=== PATIENT | female | born 1985 | race Caucasian/White ===

== ENCOUNTER 2017-09-11 09:02 | Day surgery (SDC) | payer BC ==
[2017-09-07 14:51] LABS: Absolute Monocytes 0.3 K/uL (0.1-1.3); Absolute Neutrophil 3.1 K/uL (1.8-8.0); Basophils % 0.9 % (0-1.3); Eosinophils % 2.2 % (0-4.4); Hematocrit 38.8 % (36.0-45.0); Lymphocytes % 35.6 % (15.3-44.8); MCH 29.8 pg (27.0-35.0); MPV 11.3 fL (7.6-11.3); Monocytes % 5.4 % (3.3-12.3); RBC Red Blood Cell Count 4.17 M/uL (3.86-4.86)
[2017-09-11] MEDS ORDERED: Ringers Lactate 1,000 ML IV ONE (09:45)
[2017-09-11] MEDS ORDERED: PROPOFOL 200 MG/20 ML VIAL IV ONE (09:47)
[2017-09-11] MEDS ORDERED: MIDAZOLAM HCL 2 MG/2 ML INJ ONE (09:47)
[2017-09-11] MEDS ORDERED: FENTANYL CITR 100 MCG/2 ML ONE (09:48)
--- NOTE | 2017-09-11 10:13 | P.OP ---
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 After bimanual examination, the cervix was exposed with bivalve vaginal speculum and the anterior lip of the cervix grasped with long Allis clamp. The uterus was sounded to a depth of 8 cm. The hysteroscope was then introduced into the uterine cavity using sterile saline solution as a distending media and with attached video camera. The endocervical canal was visualized and the IUD was seen in the internal os with the strings coiled within. The IUD was grasped with a hysteroscopic grasper and removed without difficulty. IUD was examined and noted to be intact. The hysteroscope was reinserted and the endometrial cavity was inspected and both ostia visualized. No issues noted. The patient tolerated the procedure well. Several pictures were taken of the endometrial cavity and the hysteroscope removed from the cavity. The instruments were removed from the vaginal vault. No bleeding noted from the cervix. The patient was sent to recovery area in good postoperative condition. Complications: None Transferred to: Recovery Room Condition: Good
[2017-09-11] MEDS ORDERED: KETOROLAC 30 MG/ML INJ IV PRN (10:43)
[2017-09-11] MEDS ORDERED: IBUPROFEN 400 MG TAB PO PRN (10:43)
[2017-09-11] MEDS ORDERED: ONDANSETRON 4 MG (ODT) TAB PO PRN (10:43)
[2017-09-11] MEDS ORDERED: KETOROLAC 30 MG/ML INJ ONE (11:29)
[2017-09-11] MEDS ORDERED: NA CHLORIDE 0.9% 1,000 ML ONE (12:21)
== END 2017-09-11 11:38 | disposition home or self-care (01) ==
LOC: OR 09:02
PROVIDERS: ATTEND Student in an Organized Health Care Education/Training Program
PROC: 0UPD8HZ Removal of Contraceptive Device from Uterus and Cervix, Via Natural or Artificial Opening Endoscopic (ICD-10-PCS; principal; 2017-09-11 10:00)
DX: Z30.432 Encounter for removal of intrauterine contraceptive device (principal); K50.90 Crohn's disease, unspecified, without complications; K58.9 Irritable bowel syndrome, unspecified; F41.8 Other specified anxiety disorders; F17.290 Nicotine dependence, other tobacco product, uncomplicated; Z88.3 Allergy status to other anti-infective agents; Z82.49 Family history of ischemic heart disease and other diseases of the circulatory system; Z83.3 Family history of diabetes mellitus; Z82.61 Family history of arthritis; Z82.3 Family history of stroke
CPT/HCPCS: 36415; 81025; 85025; 86850; 86900; 86901; 88300; J2250; J3010; J7030

== ENCOUNTER 2024-07-16 19:40 | Emergency (ER) | payer BC, SELFPAY ==
--- OUTSIDE RECORDS SUMMARY | 2024-07-16 19:45 | XMS REPORT | Continuity of Care Document ---
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 [facility] blood pressure systolic 2022-10-04 14:00:00 109 mm[Hg] [facility] blood pressure diastolic 2022-10-04 14:00:00 70 mm[Hg] Common [facility] height 2022-06-23 11:20:00 64 [in_i] Commo n [facility] weight 2022-06-23 11:20:00 144 [lb_av] Comm on [facility] bmi 2022-06-23 11:20:00 24.71 kg/m2 Comm on [facility] height 2022-05-26 16:10:00 64 [in_i] Commo n [facility] weight 2022-05-26 16:10:00 144.8 [lb_av] Co mmon [facility] temperature 2022-05-26 16:10:00 97.3 [degF] Com mon [facility] bmi 2022-05-26 16:10:00 24.85 kg/m2 Comm on [facility] oximetry 2022-05-26 16:10:00 98 % Commo n [facility] respiratory rate 2022-05-26 16:10:00 17 /min [facility] blood pressure systolic 2022-05-26 16:10:00 117 mm[Hg] [facility] blood pressure diastolic 2022-05-26 16:10:00 72 mm[Hg] [facility] Systolic blood pressure 2022-02-16 18:06:00 108 mm[Hg] Batool Murdock ld - External Diastolic blood pressure 2022-02-16 18:06:00 64 mm[Hg] Batool Murdock ld - External Heart rate 2022-02-16 18:06:00 61 /min Nick Burns - External Respiratory rate 2022-02-16 18:06:00 17 /min Batool Burns - External Body height 2022-02-16 18:06:00 162.6 cm Grace Burns - External Body weight 2022-02-16 18:06:00 66.225 kg Grace ey Seybold - External BMI 2022-02-16 18:06:00 25.06 kg/m2 Grace ey Seybold - External Systolic blood pressure 2022-01-13 14:27:00 113 mm[Hg] Batool Seybo ld - External Diastolic blood pressure 2022-01-13 14:27:00 69 mm[Hg] Batool Seybo ld - External Heart rate 2022-01-13 14:27:00 71 /min Kelse y Seybold - External Body temperature 2022-01-13 14:27:00 37.11 Silva Batool Seybold - External Respiratory rate 2022-01-13 14:27:00 16 /min Batool Seybold - External Body height 2022-01-13 14:27:00 162.6 cm Grace ey Seybold - External Body weight 2022-01-13 14:27:00 67.405 kg Grace ey Seybold - External BMI 2022-01-13 14:27:00 25.51 kg/m2 Grace ey Seybold - External Systolic blood pressure 2021-08-25 21:25:00 113 mm[Hg] Batool Seybo ld Diastolic blood pressure 2021-08-25 21:25:00 71 mm[Hg] [facility] Seybo ld Heart rate 2021-08-25 21:25:00 64 /min Kelse y Seybold Body weight 2021-08-25 21:25:00 65.772 kg Grace ey Seybold BMI 2021-08-25 21:25:00 24.89 kg/m2 Grace ey Seybold Systolic blood pressure 2021-07-29 16:46:00 108 mm[Hg] Batool Seybo ld Diastolic blood pressure 2021-07-29 16:46:00 68 mm[Hg] Batool Seybo ld Heart rate 2021-07-29 16:46:00 80 /min Kelse y Seybold Body weight 2021-07-29 16:46:00 63.322 kg Grace ey Seybold BMI 2021-07-29 16:46:00 23.96 kg/m2 Grace ey Seybold Systolic blood pressure 2021-07-09 14:56:00 126 mm[Hg] [facility] Diastolic blood pressure 2021-07-09 14:56:00 77 mm[Hg] [facility] Heart rate 2021-07-09 14:56:00 90 /min [facility] Body temperature 2021-07-09 14:56:00 36.83 Silva [facility] Respiratory rate 2021-07-09 14:56:00 18 /min [facility] Body height 2021-07-09 14:56:00 162.6 cm [facility] Body weight 2021-07-09 14:56:00 61.803 kg [facility] BMI 2021-07-09 14:56:00 23.39 kg/m2 [facility] Oxygen saturation in Arterial blood by Pulse oximetry 2021-07-09 14:56:00 99 /min [facility] Systolic blood pressure 2021-07-02 16:32:00 104 mm[Hg] Batool Seybo ld Diastolic blood pressure 2021-07-02 16:32:00 66 mm[Hg] Batool Seybo ld Heart rate 2021-07-02 16:32:00 67 /min Kelse y Grant Body weight 2021-07-02 16:32:00 60.328 kg Grace ey ybold BMI 2021-07-02 16:32:00 22.83 kg/m2 Grace ey Seybold Systolic blood pressure 2021-06-17 22:49:00 116 mm[Hg] Batool Seybo ld Diastolic blood pressure 2021-06-17 22:49:00 78 mm[Hg] Batool Seybo ld Heart rate 2021-06-17 22:49:00 79 /min Kelse y ybold Body weight 2021-06-17 22:49:00 59.421 kg Grace ey Seybold BMI 2021-06-17 22:49:00 22.49 kg/m2 Grace ey Seybold Systolic blood pressure 2021-05-28 16:45:00 116 mm[Hg] Batool Seybo ld Diastolic blood pressure 2021-05-28 16:45:00 74 mm[Hg] Batool Seybo ld Heart rate 2021-05-28 16:45:00 68 /min Kel y Grant Body weight 2021-05-28 16:45:00 58.786 kg Grace Burns BMI 2021-05-28 16:45:00 22.25 kg/m2 Grace Burns height 2021-04-14 14:20:00 64 [in_i] Commo n [facility] weight 2021-04-14 14:20:00 130 [lb_av] Comm on [facility] temperature 2021-04-14 14:20:00 98 [degF] Comm on [facility] bmi 2021-04-14 14:20:00 22.31 kg/m2 Comm on [facility] height 2021-04-05 11:40:00 64 [in_i] Commo n [facility] weight 2021-04-05 11:40:00 130 [lb_av] Comm on [facility] bmi 2021-04-05 11:40:00 22.31 kg/m2 Comm on [facility] height 2021-03-15 16:20:00 64 [in_i] Commo n [facility] weight 2021-03-15 16:20:00 133.8 [lb_av] Co mmon [facility] temperature 2021-03-15 16:20:00 98.3 [degF] Com mon [facility] bmi 2021-03-15 16:20:00 22.96 kg/m2 Comm on [facility] oximetry 2021-03-15 16:20:00 100 % Commo n [facility] respiratory rate 2021-03-15 16:20:00 17 /min Common [facility] blood pressure systolic 2021-03-15 16:20:00 134 mm[Hg] Common [facility] blood pressure diastolic 2021-03-15 16:20:00 86 mm[Hg] Common [facility] height 2020-11-16 16:20:00 64 [in_i] Commo n [facility] weight 2020-11-16 16:20:00 132.7 [lb_av] Co mmon [facility] temperature 2020-11-16 16:20:00 98.2 [degF] Com mon [facility] bmi 2020-11-16 16:20:00 22.78 kg/m2 Comm on [facility] oximetry 2020-11-16 16:20:00 99 % Commo n [facility] respiratory rate 2020-11-16 16:20:00 16 /min Common [facility] blood pressure systolic 2020-11-16 16:20:00 134 mm[Hg] [facility] blood pressure diastolic 2020-11-16 16:20:00 70 mm[Hg] [facility] height 2020-07-10 10:50:00 64 [in_i] Commo n [facility] weight 2020-07-10 10:50:00 132 [lb_av] Comm on [facility] temperature 2020-07-10 10:50:00 98.5 [degF] Com mon [facility] bmi 2020-07-10 10:50:00 22.66 kg/m2 Comm on [facility] Procedures Procedure Date / Time Performed Performing Clinicia n Source URINE TEST-BACK OFFICE TEST 2024-06-06 15:00:00 John Peres - External URINE TEST-BACK OFFICE TEST 2024-04-05 15:31:00 John Munoz - External [id number] 2021-12-29 00:00:00 BRADY [facility] [id number] 2021-12-29 00:00:00 BRADY [facility] POCT URINALYSIS 2021-07-09 14:56:00 Patty Sam [facility] US PREG LIMITED - IN OFFICE 2021-05-28 17:38:47 John Munoz [facility] Encounters Start Date/Time End Date/Time Encounter Type Admission Type Attending [facility] Care Facility Care Department Encounter ID Source 2024-05-30 11:31:00 Outpatient Steele, Daniel STLC STLMLC [id number] [facility] 2024-05-28 11:16:00 Outpatient Steele, Daniel STLMLC STLMLC [id number] [facility] 2024-01-19 08:29:00 Outpatient Steele, Daniel STLC STLMLC [id number] [facility] 2023-06-19 16:11:00 Outpatient Steele, Daniel STLC STLMLC [id number] [facility] 2023-05-29 09:29:00 Outpatient Steele, Daniel STLC STLMLC [id number] [facility] 2023-05-25 10:21:00 Outpatient Steele, Daniel STLC STLC [id number] [facility] 2022-06-21 09:32:00 Outpatient Steele, Daniel STLC STLC [id number] [facility] 2022-01-11 00:00:00 Inpatient PHYLLIS Gris Marquezcia [facility] [id number] 44 [facility] 2021-05-05 14:20:39 Outpatient Steele, Daniel STLMLC STLMLC [id number] [facility] 2021-05-05 11:30:32 Outpatient Steele, Daniel STLC STLMLC [id number] [facility] 2021-05-05 11:19:18 Outpatient Steele, Daniel STLC STLMLC [id number] [facility] 2021-05-05 11:03:17 Outpatient Steele, Daniel STLMLC STLMLC [id number] [facility] 2024-11-11 10:00:00 2024-11-11 10:00:00 Outpatient SHOSHANA JONES BATO[facility] RUTHERFORD [id number] [facility] 2024-07-12 10:00:00 2024-07-12 10:00:00 Outpatient SHOSHANA JONES [facility] [id number] [facility] 2024-07-12 00:00:00 2024-07-12 00:00:00 Outpatient KELLY STEELE [facility] R[place] [id number] [facility] 2024-07-10 10:20:00 2024-07-10 10:20:00 Outpatient LABTish BATOOL RUTHERF[facility] [id number] [facility] 2024-06-18 13:45:00 2024-06-18 13:45:00 Outpatient ANTONIETTA RS, JOHN RUTHERFORD [id number] [facility] 2024-06-18 00:00:00 2024-06-18 00:00:00 Outpatient ALIX-ARPAN RS, JOHN RUTHERFORD [id number] [facility] 2024-06-07 00:00:00 2024-06-07 00:00:00 Outpatient ALIX-ARPAN RS, JOHN RUTHERFORD [id number] [facility] 2024-06-07 00:00:00 2024-06-07 00:00:00 Outpatient ALIX-ARPAN RS, JOHN RUTHERFORD [id number] [facility] 2024-06-06 08:45:00 2024-06-06 08:45:00 Outpatient ALIX-KERRYE RS, [facility]HERF[facility] [id number] [facility] 2024-05-30 00:00:00 2024-05-30 00:00:00 (TEL[facility] [id number] [facility] 2024-05-28 14:40:00 2024-05-28 14:40:00 Outpatient BATOOL RUTHERFORD [id number] [facility] Seybkeyonna 2024-05-28 14:30:00 2024-05-28 14:30:00 Outpatient BATOOL RUTHERFORD [id number] [facility] Burns 2024-05-28 11:30:00 2024-05-28 11:30:00 Outpatient BHAGAT, KAREY RUTHERFORD [id number] [facility] 2024-05-27 11:50:00 2024-05-27 11:50:00 Outpatient CONFERENCE, [facility] BATOOL RUTHER[facility] [id number] [facility] Burns 2024-05-27 00:00:00 2024-05-27 00:00:00 Outpatient CONFERENCE, [facility] BATOOL RUTHERFORD [id number] [facility] Guadalupekeyonna 2024-05-24 08:55:00 2024-05-24 08:55:00 Outpatient CONFERENCE, [facility] R[facility]HER[facility] [id number] [facility] 2024-05-21 14:20:00 2024-05-21 14:20:00 Outpatient BATOOL RUTHERFORD [id number] [facility] 2024-05-21 11:00:00 2024-05-21 11:00:00 Outpatient BATOOL RUTHERFORD [id number] [facility] 2024-05-21 10:30:00 2024-05-21 10:30:00 Outpatient BATOOL RUTHERFORD [id number] [facility] 2024-05-17 00:00:00 2024-05-17 00:00:00 Outpatient BHAGAT, KAREY RUTHERFORD [id number] [facility] 2024-05-16 10:30:00 2024-05-16 10:30:00 Outpatient BHAGAT, KAREY RUTHERFORD [id number] [facility] 2024-05-16 09:00:00 2024-05-16 09:00:00 Outpatient BHAGAT, KAREY RUTHERFORD [id number] [facility] 2024-05-14 13:15:00 2024-05-14 13:15:00 Outpatient BATOOL RUTHERFORD [id number] [facility] 2024-05-13 00:00:00 2024-05-13 00:00:00 Outpatient CONFERENCE, [facility] BATOOL RUTHERFORD [id number] [facility] 2024-05-10 11:10:00 2024-05-10 11:10:00 Outpatient CONFERENCE, [facility] BATOOL RUTHERFORD [id number] [facility] Burns 2024-05-10 00:00:00 2024-05-10 00:00:00 Outpatient CONFERENCE, [facility] BATOOL RUTHERFORD [id number] [facility] Burns 2024-05-09 14:00:00 2024-05-09 14:00:00 Outpatient BATOOL BATOOL [id number] [facility] 2024-05-09 10:15:00 2024-05-09 10:15:00 Outpatient [id number] BATO[facility] RUTHERFORD [id number] [facility] 2024-05-09 09:20:00 2024-05-09 09:20:00 Outpatient BATOOL BATOOL [id number] [facility] 2024-05-03 00:00:00 2024-05-03 00:00:00 (TEL) STLMLC STLMLC [id number] [facility] 2024-05-03 00:00:00 2024-05-03 00:00:00 OFFICE VISIT ESTAB PT LEVEL 4 STLMLC STLMLC [id number] [facility] 2024-04-11 09:00:00 2024-04-11 09:00:00 Outpatient SHOSHANA JONES [id number] [facility] 2024-04-05 09:15:00 2024-04-05 09:15:00 Outpatient JOHN DARDEN [id number] [facility] 2024-03-19 00:00:00 2024-03-19 00:00:00 (TEL) STLMLC STLMLC [id number] [facility] 2024-03-19 00:00:00 2024-03-19 00:00:00 OFFICE VISIT ESTAB PT LEVEL 3 STLMLC STLMLC [id number] [facility] 2024-03-01 09:00:00 2024-03-01 09:00:00 Outpatient JOHN DARDEN [id number] [facility] 2024-02-29 14:30:00 2024-02-29 14:30:00 Outpatient SHOSHANA JONES BATOOL [id number] [facility] raheel 2024-02-02 00:00:00 2024-02-02 00:00:00 Outpatient MD BATOOL FERNANDES [id number] [facility] raheel 2024-01-29 00:00:00 2024-01-29 00:00:00 Outpatient RATNA, JJ RUTHERFORD [id number] [facility] raheel 2024-01-29 00:00:00 2024-01-29 00:00:00 Outpatient MD BATOOL FERNANDES [id number] [facility] raheel 2024-01-29 00:00:00 2024-01-29 00:00:00 Outpatient JOHN DARDEN [id number] [facility] 2024-01-29 00:00:00 2024-01-29 00:00:00 (TEL) STLMLC STLMLC [id number] [facility] 2024-01-23 00:00:00 2024-01-23 00:00:00 (TEL) STLMLC STLMLC [id number] [facility] 2024-01-22 00:00:00 2024-01-22 00:00:00 OFFICE VISIT ESTAB PT LEVEL [id number] [facility] 2024-01-19 00:00:00 2024-01-19 00:00:00 (TEL) STLMLC STLMLC [id number] [facility] 2023-06-21 00:00:00 2023-06-21 00:00:00 OFFICE VISIT ESTAB PT LEVEL [id number] [facility] 2023-05-29 00:00:00 2023-05-29 00:00:00 PREV VISIT EST AGE 18-[id number] [facility] 2023-02-15 00:00:00 2023-02-15 00:00:00 (TEL) STLMLC STLMLC [id number] [facility] 2023-01-03 00:00:00 2023-01-03 00:00:00 (TEL) STLMLC STLMLC [id number] [facility] 2023-01-03 00:00:00 2023-01-03 00:00:00 OFFICE VISIT ESTAB PT LEVEL [id number] [facility] 2022-10-05 00:00:00 2022-10-05 00:00:00 (TEL) STLMLC STLMLC [id number] [facility] 2022-10-04 00:00:00 2022-10-04 00:00:00 (TEL) STLMLC STLMLC [id number] [facility] 2022-10-04 00:00:00 2022-10-04 00:00:00 OFFICE VISIT ESTAB PT LEVEL [id number] [facility] 2022-06-23 00:00:00 2022-06-23 00:00:00 OFFICE VISIT ESTAB PT LEVEL [id number] [facility] 2022-05-26 00:00:00 2022-05-26 00:00:00 PREV VISIT EST AGE 18-[id number] [facility] 2022-03-22 00:00:00 2022-03-22 00:00:00 (TEL) STLMLC STLMLC [id number] [facility] 2022-02-16 11:30:00 2022-02-16 11:30:00 Outpatient ALIXJOHN URIOSTEGUI [id number] [facility] 2022-02-10 09:15:00 2022-02-10 09:15:00 Outpatient ALIXJOHN URIOSTEGUI [id number] [facility] 2022-01-24 00:00:00 2022-01-24 00:00:00 Outpatient ALIXJOHN URIOSTEGUI [id number] [facility] 2022-01-20 09:15:00 2022-01-20 09:15:00 Outpatient ALIX-TOWNS END, JOHN BATOOL RUTHERF[facility] [id number] [facility] ybkeyonna 2022-01-13 09:15:00 2022-01-13 09:15:00 Outpatient ALIX-TOWNS END, JOHN BATOOL RUTHERFORD [id number] [facility] 2022-01-11 08:00:00 2022-01-11 08:00:00 Outpatient ALIX-T[place] END, JOHN BATOOL RUTHERFORD [id number] [facility] 2022-01-06 09:15:00 2022-01-06 09:15:00 Outpatient [facility]IX[facility], JOHN RUTHERFORD [id number] [facility] 2021-12-29 15:57:00 2021-12-31 12:41:00 Inpatient Gris [facility] OBPP [id number] 43 [facility] 2021-12-30 09:15:00 2021-12-30 09:15:00 Outpatient ALIX-TOWNS END, JOHN RUTHERFORD [id number] [facility] 2021-12-30 00:00:00 2021-12-30 00:00:00 Outpatient ALIX[place], JOHN RUTHERFORD [id number] [facility] 2021-12-29 00:00:00 2021-12-29 00:00:00 Outpatient ALIX-T[place] END, JOHN RUTHERFORD [id number] [facility] 2021-12-27 00:00:00 2021-12-27 00:00:00 Outpatient ALIX-T[place] END, JOHN RUTHERFORD [id number] [facility] 2021-12-23 11:00:00 2021-12-23 11:00:00 Outpatient [id number] BATOOL RUTHERFORD [id number] [facility] Seybold 2021-12-23 09:15:00 2021-12-23 09:15:00 Outpatient ALIX-TOW[place] END, JOHN RUTHERFORD [id number] [facility] 2021-12-22 00:00:00 2021-12-22 00:00:00 Outpatient ALIX-TOW[place] END, JOHN TINOCOSEY [id number] [facility] Burns 2021-12-22 00:00:00 2021-12-22 00:00:00 Outpatient MD BATOOL FERNANDES [id number] [facility] Burns 2021-12-09 09:30:00 2021-12-09 09:45:00 [facility] 1.2.840.114 [id number] [facility] Bunrs 2021-11-24 10:30:00 2021-11-24 10:30:00 [facility] 1.2.840.114 [id number] [facility] Burns 2021-11-11 11:00:00 2021-11-11 11:00:00 [facility] 1.2.840.114 [id number] [facility] Burns 2021-11-04 10:20:00 2021-11-04 10:20:00 Outpatient LAB53 BATOOL RUTHERFORD [id number] [facility] Burns 2021-11-04 09:15:00 2021-11-04 09:15:00 [facility]ILAN 1.2.840.114 [id number] [facility] Burns 2021-11-03 11:00:00 2021-11-03 11:00:00 [facility] [id number] [facility] Gu[facility]upe[facility] 2021-10-28 11:00:00 2021-10-28 11:00:00 Telemedici Sukumar Bartlett CLEAR CORONADO 1.2.840.114 [id number] [facility] 2021-10-28 09:30:00 2021-10-28 09:30:00 Telemedici ne [facility] 1.2.840.114 [id number] [facility] 2021-10-26 10:30:00 2021-10-26 10:30:00 Outpatient NOB08, NOB08 BATOOL RUTHERFORD [id number] [facility] 2021-10-25 00:00:00 2021-10-25 00:00:00 [facility] [id number] [facility] 2021-10-08 00:00:00 2021-10-08 00:00:00 Outpatient MD BATOOL FERNANDES [id number] [facility] 2021-09-22 10:45:00 2021-09-22 10:45:00 [facility] 1.2.840.114 [id number] [id number] [facility] 2021-09-21 00:00:00 2021-09-21 00:00:00 Outpatient MD BATOOL FERNANDES [id number] [facility] 2021-09-01 00:00:00 2021-09-01 00:00:00 Outpatient [facility]NDES [id number] [facility] 2021-08-26 11:15:00 2021-08-26 11:15:00 [facility] [id number] [facility] 2021-08-25 16:30:00 2021-08-25 16:30:00 [facility] 1.2.840.114 350.1.13.13 [id number] [facility] 2021-08-25 15:00:00 2021-08-25 15:00:00 Outpatient BATOOL BATOOL [id number] [facility] 2021-08-25 10:30:00 2021-08-25 10:30:00 Outpatient [facility] ANNETTA, JOHN RUTHERFORD BATOOL [id number] [facility] Burns 2021-08-13 00:00:00 2021-08-13 00:00:00 Outpatient [facility], JOHN BATOOL BATOOL [id number] [facility] 2021-08-02 00:00:00 2021-08-02 00:00:00 Outpatient [facility], JOHN BATOOL RUTHERFORD [id number] [facility] 2021-07-29 13:05:00 2021-07-29 13:05:00 Outpatient LAB53 BATOOL BATOOL [id number] [facility] 2021-07-29 11:30:00 2021-07-29 11:45:00 Routine OB [facility] annetta John CORONADO 1.2.840.114 350.1.13.13 [id number] [id number] [facility] 2021-07-28 11:30:00 2021-07-28 11:30:00 Outpatient [facility] ANNETTA, JOHN TINOCOMARY RUTHERFORD [id number] [facility] 2021-07-14 11:30:00 2021-07-14 11:30:00 Outpatient [facility], JOHN BATOOL RUTHERFORD [id number] [facility] 2021-07-13 14:22:00 2021-07-13 18:18:00 Emergency EM Darvin Del Castillo [facility] TU [id number] [facility] 2021-07-13 00:00:00 2021-07-13 00:00:00 Outpatient [facility] JOHN LITTLEJOHN BATOOL RUTHERFORD [id number] [facility] 2021-07-12 00:00:00 2021-07-12 00:00:00 Patient Secure Msg Doctor Unassigned, [place] [facility] 1..840.114 350.1.13.10 4.2.7.2.686 [id number] [facility] 2021-07-11 00:00:00 2021-07-11 00:00:00 Outpatient ALIXJOHN URIOSTEGUI BATOOL [id number] [facility] Burns 2021-07-10 00:00:00 2021-07-10 00:00:00 Patient Secure Msg Doctor Unassigned, [place] [facility] 1..840.114 350.1.13.10 4.2.7.2.686 [id number] [facility] 2021-07-09 10:00:00 2021-07-09 10:40:26 Outpatient AUDREY YOUNGER [facility] [id number] [facility] 2021-07-09 10:00:00 2021-07-09 10:20:00 Urgent Care Audrey Montoya, Attending [facility] 1..840.114 350.1.13.10 4.2.7.2.686 [id number] [facility] 2021-07-09 10:00:00 2021-07-09 10:00:00 Outpatient R UNKNOWN, ATTENDING [facility] [id number] [facility] 2021-07-09 00:00:00 2021-07-09 00:00:00 [facility] [facility], JOHN BATOOL BATOOL [id number] [facility] 2021-07-09 00:00:00 2021-07-09 00:00:00 Telephone Audrey Montoya [facility] 1..840.114 350.1.13.10 4.2.7.2.686 [id number] [facility] 2021-07-08 14:05:00 2021-07-08 14:05:00 Outpatient LAB90 BATOOL RUTHERFORD [id number] [facility] keyonna 2021-07-08 00:00:00 2021-07-08 00:00:00 Outpatient [facility], JOHN BATOOL RUTHERFORD [id number] [facility] 2021-07-02 11:15:00 2021-07-02 11:30:00 Routine OB [facility], John CORONADO 1.2.840.114 350.1.13.13 1.2.7.2.686 [id number] [facility] 2021-06-25 09:25:00 2021-06-25 09:25:00 Outpatient LAB90 BATOOL RUTHERFORD [id number] [facility] 2021-06-25 09:00:00 2021-06-25 09:00:00 Outpatient [facility], JOHN BATOOL RUTHERFORD [id number] [facility] 2021-06-17 16:55:00 2021-06-17 16:55:00 Outpatient BATOOL RUTHERFORD [id number] [facility] 2021-06-17 16:30:00 2021-06-17 16:45:00 Routine OB [facility], John CORONADO 1.2.840.114 350.1.13.13 1.2.7.2.686 [id number] [facility] 2021-06-16 00:00:00 2021-06-16 00:00:00 Outpatient [facility], JOHN BATOOL RUTHERFORD [id number] [facility] 2021-06-15 00:00:00 2021-06-15 00:00:00 Outpatient [facility], JOHNAKI RUTHERFORD [id number] [facility] 2021-06-15 00:00:00 2021-06-15 00:00:00 Outpatient MALINDA PAEZ [id number] [facility] 2021-06-09 15:00:00 2021-06-09 15:00:00 Outpatient [facility], JOHN BATOOL RUTHERFORD [id number] [facility] 2021-06-09 15:00:00 2021-06-09 15:00:00 Outpatient BATOOL BATOOL [id number] [facility] Burns 2021-06-07 09:30:00 2021-06-07 09:30:00 Outpatient NOB53 BATOOL BATOOL [id number] [facility] Burns 2021-05-28 12:00:00 2021-05-28 12:00:00 Outpatient PTM71-BKH BATOOL BATOOL [id number] [facility] Burns 2021-05-28 11:55:00 2021-05-28 11:55:00 Outpatient LAB53 BATOOL BATOOL [id number] [facility] Burns 2021-05-28 10:30:00 2021-05-28 11:00:00 [facility] John Darden 1.2.840.114 350.1.13.13 1.2.7.2.686 [id number] [facility] Burns 2021-05-28 10:45:00 2021-05-28 10:45:00 Outpatient BATOOL RUTHERFORD [id number] [facility] Burns 2021-05-28 10:30:00 2021-05-28 10:30:00 Outpatient BATOOL RUTHERFORD [id number] [facility] Grant 2021-05-28 09:30:00 2021-05-28 09:30:00 Outpatient NOB08, NOB08 BATOOL RUTHERFORD [id number] [facility] Burns 2021-05-28 00:00:00 2021-05-28 00:00:00 Outpatient MD BATOOL FERNANDES [id number] [facility] keyonna 2021-05-27 00:00:00 2021-05-27 00:00:00 Outpatient MD BATOOL FERNANDES [id number] [facility] raheel 2021-05-24 11:00:00 2021-05-24 11:00:00 Outpatient LAB90 BATOOL RUTHERFORD [id number] [facility] Seybkeyonna 2021-05-24 00:00:00 2021-05-24 00:00:00 Outpatient JOHN DARDEN [id number] [facility] 2021-05-06 00:00:00 2021-05-06 00:00:00 (TEL) STLMLC STLMLC [id number] [facility] 2021-04-14 00:00:00 2021-04-14 00:00:00 OFFICE VISIT ESTAB PT LEVEL [id number] [facility] 2021-04-06 00:00:00 2021-04-06 00:00:00 (TEL) STLMLC STLMLC [id number] [facility] 2021-04-05 00:00:00 2021-04-05 00:00:00 (TEL) STLMLC STLMLC [id number] [facility] 2021-04-05 00:00:00 2021-04-05 00:00:00 OFFICE VISIT EST PT LEVEL [id number] [facility] 2021-03-25 00:00:00 2021-03-25 00:00:00 (TEL) STLMLC STLMLC [id number] [facility] 2021-03-16 00:00:00 2021-03-16 00:00:00 (WEB) STLMLC STLMLC [id number] [facility] 2021-03-15 00:00:00 2021-03-15 00:00:00 PREV VISIT EST AGE 18-39 [id number] [facility] 2020-11-18 00:00:00 2020-11-18 00:00:00 (TEL) STLMLC STLMLC [id number] [facility] 2020-11-16 00:00:00 2020-11-16 00:00:00 (TEL) STLMLC STLMLC [id number] [facility] 2020-11-16 00:00:00 2020-11-16 00:00:00 OFFICE VISIT EST PT LEVEL [id number] [facility] 2020-07-10 00:00:00 2020-07-10 00:00:00 (TEL) STLMLC STLMLC [id number] [facility] 2020-07-10 00:00:00 2020-07-10 00:00:00 OFFICE VISIT EST PT LEVEL [id number] [facility] 2020-03-11 00:00:00 2020-03-11 00:00:00 Outpatient STLMLC STLMLC [id number] [facility] 2020-02-14 00:00:00 2020-02-14 00:00:00 Outpatient STLMLC STLMLC [id number] [facility] 2020-02-14 00:00:00 2020-02-14 00:00:00 Outpatient STLMLC STLMLC [id number] [facility] 2019-12-31 13:00:00 2019-12-31 13:00:00 Outpatient ADIA JOE [facility] [id number] [facility] 2019-10-17 13:30:00 2019-10-17 13:30:00 [facility] [id number] [facility] 2019-10-14 00:00:00 2019-10-14 00:00:00 Orders Only Doctor Unassigned, [place] [facility] 1.2.840.114 350.1.13.10 4.2.7.2.686 [id number] 2019-10-03 14:30:00 2019-10-03 14:30:00 Outpatient MARCI SMITH [facility] [id number] [facility] 2019-10-01 00:00:00 2019-10-01 00:00:00 Case Management Adia De La Rosa [facility] [place] [facility]840.114 350.1.13.10 4.2.7.2.686 [id number] 2019-09-27 11:00:00 2019-09-27 11:00:00 Outpatient ADIA JOE [facility] [id number] [facility] 2019-09-27 00:00:00 2019-09-27 00:00:00 Orders Only Doctor Unassigned, [place] [facility] 1.2.840.114 350.1.13.10 4.2.7.2.686 [id number] 2019-09-24 10:45:00 2019-09-24 10:45:00 [facility] [id number] [facility] 2019-08-29 13:00:00 2019-08-29 13:00:00 [facility] [id number] [facility] 2019-05-30 14:15:00 2019-05-30 14:15:00 [facility] [id number] [facility] 2019-05-26 10:09:07 2019-05-26 10:24:07 Urgent Care [facility]ariq Mar[facility]aga [facility] 1.2.840.114 350.1.13.10 4.2.7.2.686 [id number] 2019-05-15 09:00:00 2019-05-15 09:00:00 [facility] [id number] [facility] 2019-05-06 12:00:00 2019-05-06 12:00:00 Out[facility] [id number] [facility] 2019-05-06 08:45:00 2019-05-06 08:45:00 [facility] [id number] [facility] 2018-12-13 09:45:00 2018-12-13 09:45:00 [facility] [id number] [facility] 2018-08-15 13:30:00 2018-08-15 13:30:00 [facility] [id number] [facility] 2018-06-27 14:00:00 2018-06-27 14:00:[address] [facility] [id number] [facility] 2018-05-31 15:00:00 2018-05-31 15:00:[address] [facility] [id number] [facility] 2018-05-17 13:45:00 2018-05-17 13:45:00 Outpatient [facility] [id number] [facility] 2017-11-10 10:03:00 2017-11-10 10:03:00 Outpatient [facility] [id number] [facility] 2017-10-30 13:30:00 2017-10-30 13:30:00 Outpatient [facility] [id number] [facility] Results Test Description Test Time Test Comments Results Result Co mments Source [facility] [id number] 00:00:00* Test Item Value Reference Range Interpretation Comme [facility] TEST RESULT (test code = UNLOINC) negative Neg. - Pos. Internal Control (test code = NOLOINC) Valid [facility] With Differential/[id number] 00:00:00* Test Item Value Reference Range Interpretation Comme nts Ferritin (test code = 2276-4) 7 ng/mL See_Comment L [Automated messa ge] The system which generated this result transmitted reference range: 15-150 ng/mL. The reference range was not used to interpret this result as normal/abnormal. Baso (Absolute) (test code = 704-7) 0.1 x10E3/uL See_Comment [Automated messa ge] The system which generated this result transmitted reference range: 0.0-0.2 x10E3/uL. The reference range was not used to interpret this result as normal/abnormal. Basos (test code = 706-2) 1 % Not Estab. % Eos (test code = 713-8) 1 % Not Estab. % Eos (Absolute) (test code = 711-2) 0.1 x10E3/uL See_Comment [Automated messa ge] The system which generated this result transmitted reference range: 0.0-0.4 x10E3/uL. The reference range was not used to interpret this result as normal/abnormal. Hematocrit (test code = 4544-3) 35.8 % See_Comment [Automated messa ge] The system which generated this result transmitted reference range: 34.0-46.6 %. The reference range was not used to interpret this result as normal/abnormal. Hematology Comments: (test code = 91425-1) Hemoglobin (test code = 718-7) 11.3 g/dL See_Comment [Automated messa ge] The system which generated this result transmitted reference range: 11.1-15.9 g/dL. The reference range was not used to interpret this result as normal/abnormal. Immature Cells (test code = UNLOINC) Immature Grans (Abs) (test code = 16427-9) 0.0 x10E3/uL See_Comment [Automated message] The system which generated this result transmitted reference range: 0.0-0.1 x10E3/uL. The reference range was not used to interpret this result as normal/abnormal. Immature Granulocytes (test code = 97944-1) 0 % Not Estab. % Lymphs (test code = 736-9) 43 % Not Estab. % Lymphs (Absolute) (test code = 731-0) 2.1 x10E3/uL See_Comment [Automated m essage] The system which generated this result transmitted reference range: 0.7-3.1 x10E3/uL. The reference range was not used to interpret this result as normal/abnormal. MCH (test code = 785-6) 26.8 pg See_Comment [Automated messa ge] The system which generated this result transmitted reference range: 26.6-33.0 pg. The reference range was not used to interpret this result as normal/abnormal. MCHC (test code = 786-4) 31.6 g/dL See_Comment [Automated messa ge] The system which generated this result transmitted reference range: 31.5-35.7 g/dL. The reference range was not used to interpret this result as normal/abnormal. MCV (test code = 787-2) 85 fL See_Comment [Automated messa ge] The system which generated this result transmitted reference range: 79-97 fL. The reference range was not used to interpret this result as normal/abnormal. Monocytes (test code = 5905-5) 7 % Not Estab. % Monocytes(Absolute) (test code = 742-7) 0.4 x10E3/uL See_Comment [Automated m essage] The system which generated this result transmitted reference range: 0.1-0.9 x10E3/uL. The reference range was not used to interpret this result as normal/abnormal. Neutrophils (test code = 770-8) 48 % Not Estab. % Neutrophils (Absolute) (test code = 751-8) 2.3 x10E3/uL See_Comment [Automated messa ge] The system which generated this result transmitted reference range: 1.4-7.0 x10E3/uL. The reference range was not used to interpret this result as normal/abnormal. NRBC (test code = 59590-9) Platelets (test code = 777-3) 188 x10E3/uL See_Comment [Automated messa ge] The system which generated this result transmitted reference range: 150-450 x10E3/uL. The reference range was not used to interpret this result as normal/abnormal. RBC (test code = 789-8) 4.22 x10E6/uL See_Comment [Automated messa ge] The system which generated this result transmitted reference range: 3.77-5.28 x10E6/uL. The reference range was not used to interpret this result as normal/abnormal. RDW (test code = 788-0) 14.4 % See_Comment [Automated messa ge] The system which generated this result transmitted reference range: 11.7-15.4 %. The reference range was not used to interpret this result as normal/abnormal. WBC (test code = 6690-2) 4.9 x10E3/uL See_Comment [Automated messa ge] The system which generated this result transmitted reference range: 3.4-10.8 x10E3/uL. The reference range was not used to interpret this result as normal/abnormal. [id number] 14:53:00* Test Item Value Reference Range Interpretation Sara ayala SURGICAL (test code = SR) R UN DATE: 01/04/22 [place] - LAB PAGE 1 RUN TIME: 1453 Specimen Inquiry RUN USER: INTERFACE P ATIENT: WINIFRED LIMA LOC: SUDHAKAR U #: [id number] AGE/SX: 36/F ROOM: [facility] RE12/29/21REG DR: John Marquez MD : 84 BED: 1 DIS: 12/31/21 STATUS: DIS IN TLOC: SPEC #: [id number] RECD: 01/03/22 STATUS: TIMA REQ #: [id number] CATARINO: 12/29/21- SUBM DR: John Marquez MD ENTERED: 01/03/22 SP TYPE: SURGICAL OTHR DR: Ita Maharaj MD ORDERED: 86001/2, ANATOMIC SPEC COPIES TO: John Marquez MD [address] [facility] [place] [address] Ita Maharaj MD [address] [facility] [address] [place] [address] PROCEDURES: [id number] (01/03/22-1218) TISSUES: 2. FALLOPIAN TUBE NOS - BI LAT CLINICAL HISTORY SAME, DELIVERED FINAL DIAGNOSIS Fallopian tube, right, salpingectomy: Complete cross-section of fallopian tube. Fallopian tube, left, salpingectomy: Complete cross-section of fallopian tube. GROSS DESCRIPTION Received in formalin labeled right fallopian tube is a 6 cm in length 1 cm in diameterfallopian tube (A). Received in formalin labeled left fallopian tube is a 7.5 cm in lengthand 0.9 cm in diameter fallopian tube (B). Technical component performed at [facility],[address] [place] [address], [place] [address] Unless gross only, the diagnosis is based upon microscopic examination.Immunohistochemistr y: This test was developed and its performance characteristicsdetermined by this laboratory. It has not been approved nor does it need approvalby the [place] FDA. Appropriate positive and negative controls are reviewed and judgedto be acceptable. This laboratory is certified under the Clinical Laboratory ImprovementAmendments (CLIA-88) as qualified to perform high complexity clinical laboratory testing. CONTINUED ON NEXT PAGE R UN DATE: 01/04/22 [place] - LAB PAGE 2 RUN TIME: 1453 Specimen Inquiry RUN USER: INTERFACE S PEC #: [id number] PATIENT: WINIFRED LIMA #[id number] (Continued) CLINICAL INFORMATION TIUP, MULTIPARA DESIRES STERILIZATION Signed SIGNATURE ON Fadi Xiao 01/04/22 1453 END OF REPORT RAPID PLASMA [id number] 10:57:00* Test Item Value Reference Range Interpretation Comme nts RAPID PLASMA REAGIN (test co de = RPR) NONREACTIVE NONREACTIVE AG HEPATITIS B [id number] 10:57:00* Test Item Value Reference Range Interpretation Comme nts AG HEPATITIS B SURFACE (test code = HBSAG) NON REACTIVE INDEX NonReactive AB HIV 1 10:57:00* Test Item Value Reference Range Interpretation Comme nts AB HIV 1 2 (test code = CDC93UN) Nonreactive Nonreactive COMPREHENSIVE METABOLIC [id number] 09:03:00* Test Item Value Reference Range Interpretation Comme nts SODIUM (test code = NA) 140 mEq/L 134-147 N POTASSIUM (test code = K) 4.2 mEq/L 3.4-5.0 N CHLORIDE (test code = CL) 106 mEq/L 100-108 N CARBON DIOXIDE (test code = CO2) 24 mEq/l 21-33 N ANION GAP (test code = GAP) 15 0-20 N GLUCOSE (test code = GLU) 108 mg/dL 70-110 N BLOOD UREA NITROGEN (test code = BUN) < 5 mg/dL 7-18 L GLOMERULAR FILTRATION RATE (test code = GFR) 112.5 105-110 H Units of measure = ml/min/1.73 m2 CREATININE (test code = CREAT) 0.6 mg/dL 0.6-1.3 N TOTAL PROTEIN (test code = PROT) 5.4 g/dL 6.4-8.2 L ALBUMIN (test code = ALB) 2.50 g/dL 3.4-5.0 L CALCIUM (test code = CA) 8.9 mg/dL 8.0-10.5 N BILIRUBIN TOTAL (test code = BILT) 0.50 mg/dL 0.0-1.0 N SGOT/AST (test code = AST) 33 IUnit/L 15-37 N SGPT/ALT (test code = ALT) 13 IUnit/L 30-65 L ALKALINE PHOSPHATASE TOTAL (test code = ALKP) 118 IUnit/L 20-125 N CBC W/AUTO [id number] 07:44:00* Test Item Value Reference Range Interpretation Comme nts WHITE BLOOD CELL (test code = WBC) 11.1 x10 3/uL 4.5-11.0 H RED BLOOD CELL (test code = RBC) 3.57 x10 6/uL 3.54-5.02 N HEMOGLOBIN (test code = HGB) 10.0 g/dL 11.0-15.0 L HEMATOCRIT (test code = HCT) 31.7 % 33.0-45.0 L MEAN CELL VOLUME (test code = MCV) 88.8 fL 81.0-99.0 N MEAN CELL HGB (test code = MCH) 28.0 pg 27.0-33.0 N MEAN CELL HGB CONCETRATION (test code = MCHC) 31.5 g/dL 33.0-37.0 L RED CELL DISTRIBUTION WIDTH CV (test code = RDW) 17.4 % 11.5-14.5 H RED CELL DISTRIBUTION WIDTH SD (test code = RDW-SD) 55.8 fL 37.0-54.0 H PLATELET COUNT (test code = PLT) 146 x10 3/uL 150-400 L MEAN PLATELET VOLUME (test c ode = MPV) 12.9 fL 7.0-9.0 H NEUTROPHIL % (test code = NT%) 78.9 % 56.0-77.0 H IMMATURE GRANULOCYTE % (test code = IG%) 0.5 % 0.0-2.0 N LYMPHOCYTE % (test code = LY%) 14.1 % 14.0-32.0 N MONOCYTE % (test code = MO%) 6.3 % 4.8-9.0 N EOSINOPHIL % (test code = EO%) 0.0 % 0.3-3.7 L BASOPHIL % (test code = BA%) 0.2 % 0.0-2.0 N NUCLEATED RBC % (test code = NRBC%) 0.0 % 0-0 N NEUTROPHIL # (test code = NT#) 8.72 x10 3/uL 2.0-7.6 H IMMATURE GRANULOCYTE # (test code = IG#) 0.05 x10 3/uL 0.00-0.03 H LYMPHOCYTE # (test code = LY#) 1.56 x10 3/uL 1.0-3.8 N MONOCYTE # (test code = MO#) 0.70 x10 3/uL 0.1-0.8 N EOSINOPHIL # (test code = EO#) 0.00 x10 3/uL 0.0-0.2 N BASOPHIL # (test code = BA#) 0.02 x10 3/uL 0.0-0.2 N NUCLEATED RBC # (test code = NRBC#) 0.00 x10 3/uL 0.0-0.1 N MANUAL DIFF REQUIRED (test c ode = MDIFF) NO CBC W/AUTO [id number] 16:53:00* Test Item Value Reference Range Interpretation Comme nts WHITE BLOOD CELL (test code = WBC) 9.4 x10 3/uL 4.5-11.0 RED BLOOD CELL (test code = RBC) 4.09 x10 6/uL 3.54-5.02 N HEMOGLOBIN (test code = HGB) 11.4 g/dL 11.0-15.0 N HEMATOCRIT (test code = HCT) 35.4 % 33.0-45.0 N MEAN CELL VOLUME (test code = MCV) 86.6 fL 81.0-99.0 N MEAN CELL HGB (test code = MCH) 27.9 pg 27.0-33.0 N MEAN CELL HGB CONCETRATION (test code = MCHC) 32.2 g/dL 33.0-37.0 L RED CELL DISTRIBUTION WIDTH CV (test code = RDW) 17.5 % 11.5-14.5 H RED CELL DISTRIBUTION WIDTH SD (test code = RDW-SD) 55.5 fL 37.0-54.0 H PLATELET COUNT (test code = PLT) 170 x10 3/uL 150-400 N IMMATURE PLATELET FRACTION (test code = IPF) 15.3 % 0.9-11.2 H MEAN PLATELET VOLUME (test c ode = MPV) 13.1 fL 7.0-9.0 H NEUTROPHIL % (test code = NT%) 70.9 % 56.0-77.0 N IMMATURE GRANULOCYTE % (test code = IG%) 0.5 % 0.0-2.0 N LYMPHOCYTE % (test code = LY%) 22.8 % 14.0-32.0 N MONOCYTE % (test code = MO%) 5.2 % 4.8-9.0 N EOSINOPHIL % (test code = EO%) 0.3 % 0.3-3.7 N BASOPHIL % (test code = BA%) 0.3 % 0.0-2.0 N NUCLEATED RBC % (test code = NRBC%) 0.0 % 0-0 N NEUTROPHIL # (test code = NT#) 6.68 x10 3/uL 2.0-7.6 N IMMATURE GRANULOCYTE # (test code = IG#) 0.05 x10 3/uL 0.00-0.03 H LYMPHOCYTE # (test code = LY#) 2.15 x10 3/uL 1.0-3.8 N MONOCYTE # (test code = MO#) 0.49 x10 3/uL 0.1-0.8 N EOSINOPHIL # (test code = EO#) 0.03 x10 3/uL 0.0-0.2 N BASOPHIL # (test code = BA#) 0.03 x10 3/uL 0.0-0.2 N NUCLEATED RBC # (test code = NRBC#) 0.00 x10 3/uL 0.0-0.1 N MANUAL DIFF REQUIRED (test c ode = MDIFF) NO BASIC METABOLIC [id number] 15:41:00* Test Item Value Reference Range Interpretation Comme nts SODIUM (test code = NA) 141 mEq/L 134-147 N POTASSIUM (test code = K) 3.8 mEq/L 3.4-5.0 N CHLORIDE (test code = CL) 107 mEq/L 100-108 N CARBON DIOXIDE (test code = CO2) 25 mEq/l 21-33 N ANION GAP (test code = GAP) 13 0-20 N GLUCOSE (test code = GLU) 104 mg/dL 70-110 N BLOOD UREA NITROGEN (test code = BUN) 8 mg/dL 7-18 N GLOMERULAR FILTRATION RATE (test code = GFR) 112.5 105-110 H Units of measure = ml/min/1.73 m2 CREATININE (test code = CREAT) 0.6 mg/dL 0.6-1.3 N CALCIUM (test code = CA) 8.8 mg/dL 8.0-10.5 N HEPATIC FUNCTION [id number] 15:41:00* Test Item Value Reference Range Interpretation Comme nts TOTAL PROTEIN (test code = PROT) 6.6 g/dL 6.4-8.2 N ALBUMIN (test code = ALB) 3.60 g/dL 3.4-5.0 N BILIRUBIN TOTAL (test code = BILT) 0.30 mg/dL 0.0-1.0 N BILIRUBIN DIRECT (test code = BILD) < 0.10 MG/DL 0.0-0.30 N SGOT/AST (test code = AST) 19 IUnit/L 15-37 N SGPT/ALT (test code = ALT) 11 IUnit/L 30-65 L ALKALINE PHOSPHATASE TOTAL ( test code = ALKP) 52 IUnit/L 20-125 N BILIRUBIN INDIRECT (test cod e = BILIND) 0.20 MG/DL [id number] 15:41:00* Test Item Value Reference Range Interpretation Comme nts LIPASE (test code = LIP) 35 U/L 13-57 N HCG [id number] 15:41:00* Test Item Value Reference Range Interpretation Comme nts HCG SERUM (test code = HCG) 813289.2 0 - 6 NOT PREGNA NT > 6 SUGGESTIVE OF EARLY RISES TWO FOLD EVERY 2 DAYS; SUGGEST RECONFIRMING AFTER 2 DAYS. 150,000-200,[address] TRIMESTER 10,000 - 50,000 2ND & 3RD TRIMESTERResults in issa-International Units/mL CBC W/AUTO [id number] 15:15:00* Test Item Value Reference Range Interpretation Comme nts WHITE BLOOD CELL (test code = WBC) 6.3 x10 3/uL 4.5-11.0 N RED BLOOD CELL (test code = RBC) 3.77 x10 6/uL 3.54-5.02 N HEMOGLOBIN (test code = HGB) 11.0 g/dL 11.0-15.0 N HEMATOCRIT (test code = HCT) 33.7 % 33.0-45.0 N MEAN CELL VOLUME (test code = MCV) 89.4 fL 81.0-99.0 N MEAN CELL HGB (test code = MCH) 29.2 pg 27.0-33.0 N MEAN CELL HGB CONCETRATION (test code = MCHC) 32.6 g/dL 33.0-37.0 L RED CELL DISTRIBUTION WIDTH CV (test code = RDW) 13.7 % 11.5-14.5 N RED CELL DISTRIBUTION WIDTH SD (test code = RDW-SD) 45.0 fL 37.0-54.0 N PLATELET COUNT (test code = PLT) 186 x10 3/uL 150-400 N MEAN PLATELET VOLUME (test c ode = MPV) 12.4 fL 7.0-9.0 H NEUTROPHIL % (test code = NT%) 61.3 % 56.0-77.0 N IMMATURE GRANULOCYTE % (test code = IG%) 0.2 % 0.0-2.0 N LYMPHOCYTE % (test code = LY%) 29.6 % 14.0-32.0 N MONOCYTE % (test code = MO%) 7.3 % 4.8-9.0 N EOSINOPHIL % (test code = EO%) 1.3 % 0.3-3.7 N BASOPHIL % (test code = BA%) 0.3 % 0.0-2.0 N NUCLEATED RBC % (test code = NRBC%) 0.0 % 0-0 N NEUTROPHIL # (test code = NT#) 3.87 x10 3/uL 2.0-7.6 N IMMATURE GRANULOCYTE # (test code = IG#) 0.01 x10 3/uL 0.00-0.03 N LYMPHOCYTE # (test code = LY#) 1.87 x10 3/uL 1.0-3.8 N MONOCYTE # (test code = MO#) 0.46 x10 3/uL 0.1-0.8 N EOSINOPHIL # (test code = EO#) 0.08 x10 3/uL 0.0-0.2 N BASOPHIL # (test code = BA#) 0.02 x10 3/uL 0.0-0.2 N NUCLEATED RBC # (test code = NRBC#) 0.00 x10 3/uL 0.0-0.1 N MANUAL DIFF REQUIRED (test c ode = MDIFF) NO URINALYSIS [id number] 15:11:00* Test Item Value Reference Range Interpretation Comme nts UA COLOR (test code = COLU) YELLOW YEL/STRAW UA APPEARANCE (test code = APPU) SL CLOUDY CLEAR UA GLUCOSE DIPSTICK (test co de = DGLUU) NEGATIVE NEGATIVE UA BILIRUBIN DIPSTICK (test code = BILU) NEGATIVE NEGATIVE UA KETONE DIPSTICK (test cod e = KETU) NEGATIVE NEGATIVE UA SPECIFIC GRAVITY (test co de = SGU) 1.015 1.005-1.030 N UA BLOOD DIPSTICK (test code = BUCK) NEGATIVE NEGATIVE UA PH DIPSTICK (test code = MELANIE) 6.0 5.0-7.0 N UA PROTEIN DIPSTICK (test co de = PROU) NEGATIVE NEGATIVE UA UROBILINIOGEN DIPSTICK (t est code = URO) 0.2 mg/dL 0.2-1.0 UA NITRITE DIPSTICK (test co de = NOHEMY) NEGATIVE NEGATIVE UA LEUKOCYTE ESTERASE DIPSTI CK (test code = LEUU) 2+ NEGATIVE A UA RBC (test code = RBCU) 0-3 RBC/HPF 0-3 UA WBC NO REFLEX (test code = WBCUCL) 10-20 WBC/HPF 0-3 A UA BACTERIA (test code = BACU) 1+ /HPF NONE SEEN A UA SQUAMOUS CELLS (test code = SQU) 0-5 /HPF NONE SEEN UA MUCUS (test code = MUCU) TRACE /LPF NONE SEEN UA AMORPHOUS SEDIMENT (test code = AMORU) TRACE /HPF NONE - US PREG 1ST [id number] 00:00:00 [facility] 1985 Sex: F Name: WINIFRED LIMAN [facility] : 1985 Age/S: 36 / F [address] [place] [address] Blvd Unit #: [id number] Loc: [place] [address] Phys: Ame Marcus Kia APRNNP Acct: [id number] Dis Date: Status:REG ER PHONE #: [phone] Exam Date: 07/13/2021 1618 FAX #: [phone] Reason: Pelvic Pain, vag bleeding EXAMS: CPT CODE: [id number] US PREG 1ST TRIMTR 33922 PROCEDURE INFORMATION: Exam: US First Trimester, Transabdominal and US Duplex Artery or Vein, Ovaries, Limited Exam date and time: 07/13/2021 4:24 PM Age: 36 years old Clinical indication: complicated by abdominal or pelvic pain; Lower; First trimester (<14 weeks 0 days); Gestational age or lmp: 14w2d; ; Additional info: Pelvic pain, vag bleeding TECHNIQUE: Imaging protocol: Real-time transabdominal obstet rical ultrasound of the maternal pelvis and a first trimester , less than 14 weeks 0 days, with image documentation. Real-time duplex ultrasound scan of the arterial or venous flow of the ovaries with B-mode, color Doppler flow and spectral waveform analysis, limited Duplex. COMPARISON: US RETRPERITONEAL COM 07/13/2021 4:11 PM The uterus measures approximately 15.1 x 12.1 x 6.7 cm and contains a single intrauterine . The estimated gestational age based on a crown-rump length of8.39 cm is 14 weeks 2 days. cardiac activity is detected with a heart rate of 158 bpm. No significant subchorionic collections are identified. No abnormalities of the myometrium are noted. The cervix is closed with a measured length of 3.9 cm. The left ovary measures 3.4 x 2.4 x 2.0 cm and contains a 1.9 x 1.9 x 2.2 cm complex cyst, likely representing a hemorrhagic physiologic cyst. Left ovarian blood flow is documented using color Doppler ultrasound. The right ovary was not identified. No adnexal masses or pelvic fluid collections are detected. IMPRESSION: 1. Single living intrauterine with an estimated ultrasound gestational age of 14 weeks 2 days. 2. Nonvisualization of the right ovary. SL: 131 at 1636 Reported and signed by: Kalpesh Underwood M.D. PAGE 1 Signed Report (CONTINUED) Name: WINIFRED LIMA [facility] : 1985 Age/S: 36 / F [address] [place] [address] Unit #: [id number] Loc: [place] [address] Phys: Ame Marcus Acct: [id number] Dis Date: Status: REGER PHONE #: [phone] Exam Date: 07/13/2021 1610 FAX #: [phone] Reason: Pelvic Pain, vag bleeding EXAMS: CPT CODE: [id number] US PREG 1ST TRIMTR 51910 (Continued) CC: John Marquez MD; Ame Marcus Technologist: Renate To Trnscb Date/Time: 07/13/2021 (1635) Oj Orig Print D/T: S: 07/13/2021 (1636) Probe: PAGE 2 Signed Report- DUP AB/PEL/SC/[id number] 00:00:00 [facility] [place] : 1985 Sex: F Name: WINIFRED LIMA [facility] Lucrecia Coronado : 1985 Age/S: 36 / F [address] [place] [address] Blvd Unit #: [id number] Loc: [place] [address] Phys: Ame Marcus [facility] Acct: [id number] Dis Date: Status: REG ER PHONE #: [phone] Exam Date: 07/13/2021 1618 FAX #: [phone] Reason: see US PREG 1st TRIMTR EXAMS: CPT CODE: [id number] DUP AB/PEL/SC/LTD 44912 PROCEDURE INFORMATION: Exam: US Pregnan cy First Trimester, Transabdominal and US Duplex Artery or Vein, Ovaries, Limited Exam date and time: 07/13/2021 4:24 PM Age: 36 years old Clinical indication: complicated by abdominal or pelvic pain; Lower; First trimester (<14 weeks 0 days); Gestational age or lmp: 14w2d; ; Colin tional info: Pelvic pain, vag bleeding TECHNIQUE: Imaging protocol: Real-time transabdominal obstetrical ultrasound of the maternal pelvis and a first trimester , less than 14 weeks 0 days, with image documentation. Real- time duplex ultrasound scan of the arterial or venous flow of the ovaries with B-mode, color Doppler flow and spectral waveform analysis, limited Duplex. COMPARISON: US RETRPERITONEAL COM 07/13/2021 4:11 PM The uterus measures approximately 15.1 x 12.1 x 6.7 cm and contains a single intrauterine . The estimated gestational age based on a crown-rump length of 8.39 cm is 14 weeks 2 days. cardiac activity is detected with a heart rate of 158 bpm. No significant subchorionic collections are identified. No abnormalities of the myometrium are noted. The cervix is closed with a measured length of 3.9 cm. The left ovary measures 3.4 x 2.4 x 2.0 cm and contains a 1.9 x 1.9 x 2.2 cm complex cyst, likely representing a hemorrhagic physiologic cyst. Left ovarian blood flow is documented using color Doppler ultrasound. The right ovary was not identified. Noadnexal masses or pelvic fluid collections are detected. IMPRESSION: 1. Single living intrauterine with an estimated ultrasound gestational age of 14 weeks 2 days. 2. Nonvisualization of the right ovary. SL: 131 at 1636 Reported and signed by: Kalpesh Underwood M.D. PAGE 1 Signed Report (CONTINUED) Name:WINIFRED LIMA [facility] : 1985 Age/S: 36 / F [address] [place] [address] Unit #: [id number] Loc: [place] [address] Phys: Ame Marcus Acct: [id number] Dis Date: Status: REG ER PHONE #: [phone] Exam Date: 07/13/2021 1618 FAX #: [phone] Reason: see US PREG 1st TRIMTR EXAMS: CPT CODE: [id number] DUP AB/PEL/SC/LTD 21934 (Continued) CC: John Marquez MD; Ame Marcus Technologist: Renate To Trnwvb Date/Time: 07/13/2021 (1635) tHOSEA Orig Print D/T: S: 07/13/2021 (1636) Probe: PAGE 2 Signed Report- US RETROPERITONEAL [id number] 00:00:00 [facility] 1985 Sex: F Name: WINIFRED LIMA [facility] Lucrecia Coronado : 1985 Age/S: 36 / F [address] [place] [address] Unit #: [id number] Loc: [place] [address] Phys: Ame Marcus APRNN Acct: [id number] Dis Date: Status: REG ER PHONE #: [phone] Exam Date: 07/13/2021 1618 FAX #: [phone] Reason: passed kidneystone, 13 weeks ob wants EXAMS: CPT CODE: [id number] US RETROPERITONEAL COM [id number] PROCEDURE INFORMATION: Exam: US Retroperitoneal; Complete; Kidneys and Bladder Exam date and time: 07/13/2021 4:11 PM Age: 36 years old Clinical indication: Abdominal pain; Flank; Right; ; Additional info: Passed kidney stone, 13 weeks ob wants evaluatio TECHNIQUE: Imaging protocol: Real-time ultrasound of the retroperitoneum with image documentation. Complete exam focused on the kidneys and bladder. COMPARISON: No relevant prior studies available. FINDINGS: KIDNEYS: The right kidney measures 9.7 cm longitudinally and maintains normal cortical thickness and normal cortical echotexture. There is no evidence of acute right renal collecting system obstruction. No solid renal masses, abnormal calcifications or perinephric fluid collections are noted. The left kidney measures 9.8 cm longitudinally and maintains normal cortical thickness and normal cortical echotexture. There is no evidence of acute left renal collecting system obstruction. No solid renal masses, abnormal calcifications or perinephric fluid collections are noted. BLADDER: The bladder has an unremarkable appearance. Bilateral ureteral jets are documented. RETROPERITONEUM: The inferior vena cava is documented to be patent. The visualized portions of the abdominal aorta appear normal in caliber. IMPRESSION: 1. No acute sonographic abnormalities of the kidneys are detected. SL: 131 at 1639 Reported and signed by: Kalpesh Underwood M.D. CC: John Marquez MD; Ame Marcus Technologist: Renate To Trnscb Date/Time: 07/13/2021 (1638) Oj Orig Print D/T: S: 07/13/2021 (1638) Probe: PAGE 1 Signed ReportPOCT URINALYSIS W SPECIFIC [id number] 14:56:00* Test Item Value Reference Range Interpretation Comme nts POCT U SP GRAV (test code = 3255) 1.010 mg/dl 1.005-1.025 POCT PH U (test code = 3254) 7 mg/dl 5-8 POCT U LEUK EST (test code = 3263) trace Negative - Negative POCT U NIT (test code = 3262) neg Negative - Negative POCT U PROT (test code = 3259) neg Negative - Negative POCT U GLU (test code = 3256) norm Negative - Negative POCT U KETONE (test code = 3258) neg Negative - Negative POCT U UROBILI (test code = 3260) norm 0.2-1 POCT U BILI (test code = 3261) neg Negative - Negative POCT U BLD (test code = 3257) trace Negative - Negative POCT U COLOR (test code = 3266) light POCT U APPEAR (test code = 3267) clear VERNA (test code = VERNA) accurate developme nt and interpretation of all internal controls Lab Interpretation (test code = 16049-3) [facility]Lum[facility] Spine 3 ViewsSARS- COV 2 AntigenSARS-COV 2 Antigen Notes Date/Time Note Provider Source 2024-06-06 08:49:10 Chief Complaint Patient presents with Endometrial Biopsy Alka Briggs LVN [facility] 2024-04-05 09:27:31 Chief Complaint Patient presents with Menstrual Problem Pt c/o heavy & painful cycles, passing quarter size blood clots. Dx with Anemia over 1 month ago has follow up with Hematology . Alka Briggs LVN [facility] 2021-12-30 14:16:00 [facility] ([facility]) Pain Management Progress Note REPORT#:[id number] REPORT STATUS: Signed DATE:12/30/21 TIME: 1416 PATIENT: WINIFRED LIMA UNIT #: [id number] ROOM/BED: [place] [address] : [birth year] AGE: 36 SEX: F ATTEND: John Marquez MD ADM AUTHOR: Joey Tripp MD * ALL edits or amendments must be made on the electronic/computer document * Objective General VS/I O: POD # 1 Chief Complaint: abdominal pain, s/p section Duramorph spinal Patient seen and examined Moving legs Current pain scale 4/10 Pain relieved by rest and pain medications Current patient activity level resting in bed No side effects noted. Assessment and plan: Encouraged to continue with pain medications as needed. Discontinue anesthesia service. Vital Signs Date Temp Pulse Resp B/P B/P Mean Pulse Ox FiO2 12/29-12/30 36.5-36.8 60-106 16-18 92-134/54-90 72.0-107.0 94-100 Last Documented: Result Date Time Pulse Ox 98 12/30 1200 B/P 100/62 12/30 1200 Temp 36.8 12/30 1200 Pulse 63 12/30 1200 Resp 16 12/30 1200 B/P Mean 81.0 12/29 2148 24 hour I O ending at 0700: 12/30 0700 12/29 1900 Intake Total 2225 1000 Output Total 2182 Balance 43 1000 Weight 3.460 Blood Loss 172 Quantification Method Intake, Other 2225 1000 Output, Other 2182 Patient 78.2 kg Weight PATIENT WEIGHT: Weight (lb): 172 Weight (oz): 6.42 Weight (kg): 78.200 at 1417 RPT #:[id number] END OF REPORT [facility] 2021-12-30 08:07:00 [facility] ([facility]) OB Disch REPORT#:[id number] REPORT STATUS: Signed DATE:12/30/21 TIME: 0807 PATIENT: WINIFRED LIMA UNIT #: [id number] ROOM/BED: [place] [address] : 84 AGE: 36 SEX: F ATTEND: John Marquez MD ADM AUTHOR: John Marquez MD * ALL edits or amendments must be made on the electronic/computer document * See Addendum Subjective Subjective Admission EGA: Weeks: 37 Days: 1 EGA at delivery (wks/days): 37 weeks Status/day: post operative (#1) Patient reports: Patient reports: Yes: normal lochia, pain management effective, tolerating po well, voiding well, voiding without pain, tolerating ambulation, flatus. No: complaints, bowel movement. Objective General VS: Vital Signs: Date Time Temp Pulse Resp B/P B/P Pulse O2 O2 Flow FiO2 Mean Ox Delivery Rate 12/30 0600 76 98 12/30 0100 81 96 12/30 0029 98.2 67 17 92/56 96 12/29 2300 71 98 12/29 2151 78 99 12/298 81.0 12/30 2147 67 106/66 12/29 2145 65 97 12/29 2140 82 98 12/30 2135 78 97 12/29 2132 81.0 12/29 2132 72 107/66 12/29 213 75 98 12/296 84 98 12/29 2120 67 98 12/29 2117 86.0 12/29 2117 86 113/68 12/30 2115 89 98 12/29 2110 95 98 12/29 2105 60 98 12/29 2102 87.0 12/29 2102 60 115/68 12/29 2100 61 98 12/30 2055 63 99 12/29 2050 76 98 12/30 2047 86.0 12/30 2047 67 115/67 12/29 2045 73 98 12/29 2040 78 97 12/30 2035 89 98 12/29 2032 74.0 12/29 2032 100 97/64 12/29 2030 81 97 12/29 2025 93 98 12/29 2020 88 97 12/29 2017 73.0 12/29 2017 93 95/59 12/30 2015 91 96 12/29 2010 102 96 12/29 2005 102 96 12/29 2002 72.0 12/29 2002 104 96/63 12/29 2000 102 97 12/30 1955 106 97 12/29 1952 100 94 12/29 1950 90 96 12/30 1947 76.0 12/30 1947 98 103/60 12/29 1945 92 96 12/29 1941 92 94 12/29 1940 93 94 12/29 1934 89 96 12/29 1929 73.0 12/29 1929 97.7 71 16 97/54 96 12/29 1607 96 100 12/29 1602 92 100 12/29 1557 96 100 12/29 1552 92 100 12/29 1547 107.0 12/29 1547 95 134/90 100 12/29 1544 18 Physical Exam Breasts: Breasts: normal, non-tender, soft Flow: colostrum Nipples: normal, intact Feeding: breast and formula, pumping breasts Nursing: poor Cardiac: normal rhythm Lungs: unlabored breathing Neuro: Exam: alert, oriented x3, normal speech, normal gait DTR's (lower extr): normal 1-2+, no clonus Abdomen: post gravid, soft, no abnormal tenderness, no guarding, no rebound tenderness, normoactive bowel sounds Incision site: well approximated edges, dressing clean dry, no drainage, no inflammation Uterus: tender (surgically appropriate), involution appropriate Fundus: firm, below the umbilicus Lochia: normal Lower extremities: Edema: none Results Findings/Data: Laboratory Tests: 12/30 12/29 0441 1619 Hematology WBC (4.5 - 11.0 x10 3/uL) 11.1 H 9.4 RBC (3.54 - 5.02 x10 6/uL) 3.57 4.09 Hgb (11.0 - 15.0 g/dL) 10.0 L 11.4 Hct (33.0 - 45.0 %) 31.7 L 35.4 MCV (81.0 - 99.0 fL) 88.8 86.6 MCH (27.0 - 33.0 pg) 28.0 27.9 MCHC (33.0 - 37.0 g/dL) 31.5 L 32.2 L RDW (11.5 - 14.5 %) 17.4 H 17.5 H Plt Count (150 - 400 x10 3/uL) 146 L 170 MPV (7.0 - 9.0 fL) 12.9 H 13.1 H Neut % (Auto) (56.0 - 77.0 %) 78.9 H 70.9 Lymph % (Auto) (14.0 - 32.0 %) 14.1 22.8 Canyon % (Auto) (4.8 - 9.0 %) 6.3 5.2 Eos % (Auto) (0.3 - 3.7 %) 0.0 L 0.3 Baso % (Auto) (0.0 - 2.0 %) 0.2 0.3 Neut # (Auto) (2.0 - 7.6 x10 3/uL) 8.72 H 6.68 Lymph # (Auto) (1.0 - 3.8 x10 3/uL) 1.56 2.15 Canyon # (Auto) (0.1 - 0.8 x10 3/uL) 0.70 0.49 Eos # (Auto) (0.0 - 0.2 x10 3/uL) 0.00 0.03 Baso # (Auto) (0.0 - 0.2 x10 3/uL) 0.02 0.03 Abs Immat Gran (auto) (0.00 - 0.03 x10 3/uL) 0.05 H 0.05 H Add Manual Diff NO NO Immature Gran % (0.0 - 2.0 %) 0.5 0.5 Nucleated RBC % (0 - 0 %) 0.0 0.0 Nucleated RBCs # (Man) (0.0 - 0.1 x10 3/uL) 0.00 0.00 Immature Plt Fraction (0.9 - 11.2 %) 15.3 H Serology Hep Bs Antigen (NonReactive INDEX) NON REACTIVE HIV 1 2 Antibody Screen (Nonreactive) Nonreactive Discharge Summary General Free Text A P: S/P LTCS-stable. D'C home tomorrow Assessment: nml progress, breast feeding difficulty (infant tied tongue), acute blood loss anemia Date of admission: Date of admission: 12/29/21 Admission diagnosis: labor-term, previous uterine incision, sterilization Hospital course: spontaneous labor, repeat LTCS in labor, tubal ligation w/ , spinal anesthesia, nml postop/postpart care Procedures: repeat CS delivery, bilateral salpingectomy Discharge condition: stable Discharge to: Home/Self Care Discharge diagnosis: full-term uncomp delivery, previous uterine incision, sterilization Discharge management: less than 30 mins Baby A: Vaginal delivery: C/S status: live born Gender: male 1 minute: 8 5 minutes: 8 Anomalies: none Nursing data: The data set between the solid lines has been imported from nursing documentation. Any exceptions have been noted below under Provider comments. Delivery date infant A: 12/29/21 Delivery time A: 1850 Birthweight (gm) A: 3460 Feeding preference: Gender A: Male 1 minute infant A: 8 5 minutes A: 8 10 minutes A: Provider comments on imported nursing data: [] Plan: routine care, circumcision tomorrow, discharge tomorrow Vaginal packing at delivery: No Discharge Instructions Instructions: routine instr sheet given, instr and warnings rev'd, specific instr as noted Diet: Regular Activity: No Driving, No Lobeco for 6 Wks, No Lifting >10lbs, No Strenuous Activity, Nothing in vagina pre f/u, Shower Only Additional discharge routines: Attending Follow-Up Additional instructions: Call for heavy bleeding, ssx of infxn, or uncontrolled pain Contraception discussed: abstinence for 4-6 weeks, will discuss at PP visit Discharge meds: Continue taking these medications: {PNV/IRON CARB/FA} ({PRENATABS RX}) 1 TAB TAB 1 TABLET ORAL DAILY. FERROUS SULFATE (FEOSOL) 325 MG (65 MG IRON) TAB 325 MILLIGRAM ORAL DAILY. FOLIC ACID (FOLIC ACID) 1 MG TAB 1 MILLIGRAM ORAL DAILY. Start taking the following new medications: HYDROcodone/APAP (HYDROcodone/APAP 5/325) 5 MG-325 MG TAB 1 TABLET ORAL EVERY 4 HOURS NEEDED. as needed for pain Qty = 30 No Refills IBUPROFEN (MOTRIN) 800 MG TAB 800 MILLIGRAM ORAL EVERY 8 HOURS. as needed for cramping Qty = 30 No Refills Prescriptions: e-prescribe Rx drug database reviewed: yes Add'l Follow-up Appointments Attending Physician: Attending Physician: John Marquez MD Attending physician follow up timeframe: In 1-2 weeks at 0830 Addendum 1: 12/31/21 0833 by Yelitza Dietrich MD NO CHANGES. D/C HOME IF BABY DC'D. F/U 2 WEEKS at 0833 RPT #:[id number] END OF REPORT [facility] 2021-12-29 19:20:00 [facility] ([facility] DT Operative Note REPORT#:[id number] REPORT STATUS: Signed DATE:12/29/21 TIME: 1919 PATIENT: WINIFRED LIMA UNIT #: [id number] ROOM/BED: [place] [address] : 84 AGE: 36 SEX: F ATTEND: John Marquez MD ADM AUTHOR: John Marquez MD * ALL edits or amendments must be made on the electronic/computer document * Operative Report Operative Note Note: Date of procedure: December 29, 2021 Start time: 1843 Procedure: Low transverse section and bilateral salpingectomy Preop diagnosis: Previous section x2 and undesired fertility Postop diagnosis: same Surgeon:John Golden MD Bottom Cementer: RAFIQ Harman Anesthesia: Spinal Anesthesiologist: Dr. Metzger Indication: Patient is a 36-year-old G4, P2 at 37 weeks. Patient presents to labor and delivery with complaint of contractions. Patient with 2 previous section scheduled for elective in 2-week. Patient was noted to be 2 cm 60% effaced -3 station with intact membrane. Patient however was noted to be lobo every 2 every to 3 minutes. Patient it was discussed with the patient and decided to proceed with section. I had previously discussed with the patient permanent sterilization patient understands and desires to bilateral salpingectomy. Patient understands risk and complications. Description of procedure: Patient was taken to the operative suite after adequate epidural anesthesia was obtained patient is prepped and draped in the usual fashion. At that time a Pfannenstiel incision is made approximately 2 cm above the pubic bone. The incision is extended down to the level of the anterior rectus fascia. The fascia is incised and the incision is extended laterally using Bovie knife and hemostat. At that time the superior portion of the anterior rectus fascia is grasped superiorly bluntly dissected laterally sharply dissected in the midline using the Bovie knife. Same is repeated inferiorly. At that time the rectus muscles were identified and the peritoneum is identified and incised using Metzenbaum scissors. The is a incision is extended superiorly and inferiorly using Metzenbaum scissors. At that time Jose retractor is placed within the abdomen. A bladder flap was developed using smooth pickups and Metzenbaum scissor. The uterus was then incised and the lower uterine segment. The incision is extended laterally using finger fraction. The 's head was grasped and delivered through the abdominal incision. Nose amount of suction. The remainder of the infant is delivered. Cord is clamped and cut and the infant handed off to the nurses present at the time of delivery. At that time the placenta was then manually. The uterus is cleaned of any remaining products of conception using a dry abdominal lap. At that time the incision was grasped laterally and inferiorly and closed using a 0 chromic suture ligature in a running fashion from right lateral border to the left lateral border and back to the right lateral border. At that time the abdomen is cleaned of any remaining blood and clots. The uterus tubes and ovaries were examined and noted to be normal. The uterus was elevated out of the abdomen. The left tube was grasped with Benson. The peritoneum of the tube is then cauterized and cut the using the LigaSure from the distal portion to the isthmic region.The tube was then cauterized and cut using the LigaSure. The same was repeated on the right. The uterus was returned to the abdomen. Examination of the pedicles were noted to be hemostatic in situ. At that time the incision was reexamined and noted to be hemostatic. Interceed is placed in an inverted T-type fashion with the tail of the T running up to the fundus of the uterus. At that time the peritoneum was identified and grasped with hemostats x3. Peritoneum was then closed using a 2- 0 Vicryl suture ligature in a running fashion from superior border to the inferior border. The rectus muscle reapproximated using a similar 2-0 Vicryl in interrupted [id number] type fashion. The subfascial spaces washed with normal saline and noted to be hemostatic. The fascia was then closed using a 0 Vicryl suture ligature in a running fashion from right lateral border to the left lateral border. The subcutaneous tissue was then washed with normal saline and noted to be hemostatic. The subcutaneous tissue was then closed using 3-0 plain suture ligature in a running fashion from right lateral border to left lateral border. The skin is then closed using a subcuticular stitch of 3-0 Monocryl on a Suman needle. The procedure was completed at that time the wound is dressed with Steri-Strips. Operative findings: Viable male. Weight: 3460 g, 7 pounds 10 ounces. : 8/ 8. Normal uterus tubes and ovaries Complications: none QBL: 172 cc Blood product: None Specimens removed: Cord blood Culture sent: None Drains: Schumacher to gravity Implants: None Fluids: 600 cc Urine output: 250 cc Approach: Open Counts: Correct for instrument,needle and sponges Patient tolerated procedure well was taken to recovery room in stable condition at 1929 RPT #:[id number] END OF REPORT [facility] 2021-12-29 18:21:00 [facility] ([facility]) OB Admission / H P REPORT#:[id number] REPORT STATUS: Signed DATE:12/29/21 TIME: 1820 PATIENT: WINIFRED LIMA UNIT #: [id number] ROOM/BED: [place] [address] : 84 AGE: 36 SEX: F ATTEND: John Marquez MD ADM AUTHOR: John Marquez MD * ALL edits or amendments must be made on the electronic/computer document * OB History Nursing Documentation Review Nursing data: The data set between the solid lines has been imported from nursing documentation. Any exceptions have been noted below under Provider comments. Current data Steroids prior to arrival: ROM date: ROM time: EDC date: 01/18/22 Gestational age (labor triage): Post hemorrhage risk score: Medium Risk for Hemorrhage. Prior history : 4 Para: 3 Term: : Abortions spontaneous: Abortions induced: Living children: Ectopic: Stillbirths: Live births: deaths: Number of previous C/S: Reported maternal labs/data Blood type: Rh type: Rubella: Hepatitis B: HIV exposure test: Unknown VDRL: Group B beta strep: Positive Rho(D) immune globulin this preg: Monitor mode - UA: Feeding preference: Provider comments on imported nursing data: [] Chief complaint: uterine contractions HPI: Patient is a 36-year-old -0-0-3 at 37 weeks gestation. Patient presents to labor and delivery with complaint of contractions. Patient was noted to be lobo every 1 to 3 minutes with moderate intensity. Upon cervical exam patient was noted 2 centimeters 60% effaced with intact membranes. Patient was initially scheduled for section at approximately 2 weeks from now. Discussed with patient and spouse who agreed to proceed now with section and bilateral salpingectomy secondary to labor and previous section. history: : 4 Term: 3 : 0 Abortus: 0 Living children: 3 Previous : low uterine trans incis Number of prev : 2 Indication for prior : arrest dilatation/descent, repeat elective Current : Admission EGA (weeks) 37 Admission EGA (days) 1 Conditions of : previous uterine incision Labs: Blood type: O Rh: negative Rubella: immune Hepatitis B: negative HIV: negative STD: negative Syphilis: currently negative GBS: positive Date Rhogam administered: 11/04/21 Procedures: ultrasound, genetic testing Genetic testing: Down syndrome Past History Past Medical History: Reports: GI bleed (Irene). Past Surgical History: Reports: . Alcohol Use Denies EtOH use Drug Use Denies recreational drugs Smoking status for patients 13 years old or older: Never Smoker Allergies: Coded Allergies: No Known Allergies (12/29/21) Review of Systems All systems rev neg: except as marked Objective General VS: Last Documented: Result Date Time Pulse Ox 100 12/29 1607 Pulse 96 12/29 1607 B/P Mean 107.0 12/29 1547 B/P 134/90 12/29 1547 Resp 18 12/29 1544 Vital Signs Date Temp Pulse Resp B/P B/P Mean Pulse Ox FiO2 12/29 92-96 18 134/90 107.0 100 PATIENT WEIGHT: Weight (lb): 172 Weight (oz): 6.42 Weight (kg): 78.200 Physical Exam HEENT: normocephalic w/o injury, pupils equal, pupils reactive to light, no apparent hearing diff, no lesions of mouth, no scleral icterus Cardiac: regular rate and rhythm, no clinically sig murmur Lungs: clear to auscultation, no rales Breasts: deferred Neuro: Exam: alert, oriented x3, normal speech DTR's (lower extr): normal 1-2+, no clonus Abdomen: gravid, soft, no abnormal tenderness, no guarding, no rebound tenderness, normoactive bowel sounds Uterine activity: Monitor: toco Frequency (description): regular Frequency (minutes): 2 (1-3) Duration (seconds): 60 Intensity: moderate Resting tone: relaxed Tachysystole: No Pelvic exam: Pelvis clinically adequate: yes, inlet appears appropriate, pubic bone config appropr, no midpelvic contraction Vulvar lesions: none, no evidence herpetic les, no evidence of other STD Vagina: normal, non-septated, w/o apparent lesions Uterus size in weeks: 38 Exam: soft, non-tender, approp size for gest age Cervical/ exam: Dilatation (cm): 2 Effacement (%): 60 Suspected macrosomia: No White Score White Score Response Value Dilation: 1-2 cm (1) 1 Effacement: 60-70% (2) 2 Station: -3 (0) 0 Position: posterior (0) 0 Consistency: medium (1) 1 Total 4 Membranes: Membranes: Intact Lower extremities: Edema: none Baby A: Baby A baseline: 125 bpm Baby A variability: moderate 6-25 bpm Baby A accelerations: 15 X 15 Baby A decelerations: none Baby A FHR category: category 1 Results Findings/Data: Laboratory Tests: 12/29 1619 Hematology WBC (4.5 - 11.0 x10 3/uL) 9.4 RBC (3.54 - 5.02 x10 6/uL) 4.09 Hgb (11.0 - 15.0 g/dL) 11.4 Hct (33.0 - 45.0 %) 35.4 MCV (81.0 - 99.0 fL) 86.6 MCH (27.0 - 33.0 pg) 27.9 MCHC (33.0 - 37.0 g/dL) 32.2 L RDW (11.5 - 14.5 %) 17.5 H Plt Count (150 - 400 x10 3/uL) 170 MPV (7.0 - 9.0 fL) 13.1 H Neut % (Auto) (56.0 - 77.0 %) 70.9 Lymph % (Auto) (14.0 - 32.0 %) 22.8 Canyon % (Auto) (4.8 - 9.0 %) 5.2 Eos % (Auto) (0.3 - 3.7 %) 0.3 Baso % (Auto) (0.0 - 2.0 %) 0.3 Neut # (Auto) (2.0 - 7.6 x10 3/uL) 6.68 Lymph # (Auto) (1.0 - 3.8 x10 3/uL) 2.15 [place] # (Auto) (0.1 - 0.8 x10 3/uL) 0.49 Eos # (Auto) (0.0 - 0.2 x10 3/uL) 0.03 Baso # (Auto) (0.0 - 0.2 x10 3/uL) 0.03 Abs Immat Gran (auto) (0.00 - 0.03 x10 3/uL) 0.05 H Add Manual Diff NO Immature Gran % (0.0 - 2.0 %) 0.5 Nucleated RBC % (0 - 0 %) 0.0 Nucleated RBCs # (Man) (0.0 - 0.1 x10 3/uL) 0.00 Immature Plt Fraction (0.9 - 11.2 %) 15.3 H Serology Hep Bs Antigen (NonReactive INDEX) NON REACTIVE HIV 1 2 Antibody Screen (Nonreactive) Nonreactive Diagnosis, Assessment Plan Diagnosis, Assessment Plan Assessment/Impression: previous C/S, in labor, membranes intact, reactive NST Plan: admit to inpatient, , IVF, surveillance Plan discussed with: patient, spouse/partner, nurse at 1933 RPT #:[id number] END OF REPORT [facility] 2021-12-29 15:55:00 [facility] ([facility]) OB Medical Screening Exam REPORT#:[id number] REPORT STATUS: Signed DATE:12/29/21 TIME: 1555 PATIENT: WINIFRED LIMA UNIT #: [id number] ROOM/BED: [place] [address] : 84 AGE: 36 SEX: F ATTEND: John Marquez MD ADM AUTHOR: Ita Maharaj MD * ALL edits or amendments must be made on the electronic/computer document * Medical Screening Exam Provider Attestation Attestation: The QMP MSE reviewed. Notified at 1550 Provider at bedside at 1550 Comments: 36 y/o IUP 37 1/7 presents due to regular uterine contractions. at 1843 RPT #:[id number] END OF REPORT [facility] 2021-12-29 15:55:00 [facility] ([facility]) JULIET Evaluation Note REPORT#:[id number] REPORT STATUS: Signed DATE:12/29/21 TIME: 1555 PATIENT: WINIFRED LIMA UNIT #: [id number] ROOM/BED: [place] [address] : 84 AGE: 36 SEX: F ATTEND: John Marquez MD ADM AUTHOR: Ita Maharaj MD * ALL edits or amendments must be made on the electronic/computer document * JULIET History Chief complaint: uterine contractions HPI: 36 y/o IUP 37 1/7 presents due to regular uterine contractions. She refers good movements and denies any gush of vaginal fluids, vaginal bleeding or recent exposure to COVID, fever or SOB. Verbal consent obtained from patient to discuss history, lab results, treatment, plan and any other pertinent information in front of patient's companions. history: : 4 Term: 3 Living children: 3 Current : EDC: 01/11/22 EGA (weeks/days): 37 weeks Past medical history: Iron deficiency anemia Past surgical history: (x1), tonsils/adenoids, wisdom teeth, hemorroidectomy Social history: no alcohol use, no tobacco use, no drug use Medications: Home Medications: Medication Dose/Rte/Freq Days Qty Entered Last Max Daily Dose Reviewed FERROUS SULFATE 325 MG PO DAILY 12/29/21 12/29/21 (FEOSOL) 7539 3160 Strength: 325 MG (65 MG IRON) TAB FOLIC ACID 1 MG PO DAILY 12/29/21 12/29/21 Strength: 1 MG TAB 1541 1541 {PNV/IRON CARB/FA} 1 TAB PO DAILY 06/30/14 12/29/21 ({PRENATABS RX}) 6868 1548 Strength: 1 TAB TAB Allergies Coded Allergies: No Known Allergies (12/29/21) Review of Systems Additional notes: Constitutional: Denies: chills, fatigue, fever, generalized weakness, lethargy, malaise. Respiratory: Denies: productive cough (sputum), SOB. GI: Denies: abdominal pain, constipation, diarrhea, nausea, vomiting. : Refers: contractions Denies: urgency, vaginal bleeding. 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 37 weeks gestation of Free Text A P: 36 y/o IUP 37 04/16 presented due to regular uterine contractions. Patient found to be in early labor. Discussed case with Dr. Marquez, she agreed on admission and will assume care of patient from this point on. Will admit patient to L D. Patient oriented on findings and plan. Assessment: reassuring status Impression: spontaneous labor, prior CS Plan: Admit to L D Plan discussed with: patient, nurse, Dr. Marquez at 1843 RPT #:[id number] END OF REPORT [facility] 2021-07-13 14:29:00 [facility] ([facility]) EMERGENCY PROVIDER REPORT REPORT#:[id number] REPORT STATUS: Signed DATE:07/13/21 TIME: 1428 PATIENT: WINIFRED LIMA UNIT #: [id number] ROOM/BED: AGE: 36 SEX: F PCP PHYS: John Marquez MD SERVICE AUTHOR: Ame Marcus APRNNP * ALL edits or amendments must be made on the electronic/computer document * Ame Marcus 07/13/211428: HPI-Abd Pain F Under 40 General Initial Greet Date/Time 07/13/211421 Provider in Triage Greet Note I have greeted and performed a focused rapid initial assessment of this patient. A comprehensive ED assessment and evaluation of the patient, analysis of all test results, and completion of the medical decision-making process will be conducted by additional ED providers. PE General/Const appears uncomfortable Respiratory/Chest No respiratory distress Neurologic Alert, Oriented X3 MSE Not Complete The medical screening exam is not complete. Further evaluation and/or treatment is required. The patient will be re-directed to the emergency department. 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 Patient states she is 13 weeks , has been experiencing right flank pain and UTI-like symptoms for the last 5 days, states she was seen at urgent care and ER over the weekend with only urinalysis completed. Reports she passed a large kidney stone today, still having right flank pain, lower abdominal cramping and light vaginal pain. 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 Past Medical History - Adult Stated Complaint 13 WEEKS PG/RENAL CALCULI Allergies Coded Allergies: No Known Allergies (06/30/14) Home Medications Active Scripts HYDROcodone/APAP (NORCO 5/325) 2 TAB PO Q4H PRN PRN SEVERE PAIN HYDROcodone/APAP (NORCO 5/325) 2 TAB PO Q4H PRN PRN SEVERE PAIN #40 Prov: 07/03/14 IBUPROFEN (MOTRIN) 800 MG PO Q8H PRN PRN MILD PAIN IBUPROFEN (MOTRIN) 800 MG PO Q8H PRN PRN MILD PAIN #90 Prov: 07/03/14 Reported Medications {PNV/IRON CARB/FA} ({PRENATABS RX}) 1 TAB PO DAILY Physical Exam Vital Signs Vital Signs First Documented: Result Date Time Pulse Ox 99 07/13 143 B/P 128/83 07/13 143 B/P Mean 98 07/14 1431 O2 Delivery Room air 07/14 1431 Temp 37.0 07/14 1431 Pulse 96 07/13 143 Resp 16 07/13 143 Last Documented: Result Date Time Pulse Ox 100 07/13 182 B/P 119/78 07/13 182 B/P Mean 91 07/13 1822 O2 Delivery Room air 07/13 1822 Pulse 67 07/13 182 Resp 14 07/13 1822 Temp 37.0 07/13 143 Interpretation Diagnostics Lab Results Interpretation Results Laboratory Tests 07/13/21 1500: [Embedded Image Not Available] Laboratory Tests: 07/13 07/13 1500 1437 Chemistry Sodium (134 - 147 mEq/L) 141 Potassium (3.4 - 5.0 mEq/L) 3.8 Chloride (100 - 108 mEq/L) 107 Carbon Dioxide (21 - 33 mEq/l) 25 Anion Gap (0 - 20) 13 BUN (7 - 18 mg/dL) 8 Creatinine (0.6 - 1.3 mg/dL) 0.6 Glomerular Filtr Rate (105 - 110) 112.5 H Glucose (70 - 110 mg/dL) 104 Calcium (8.0 - 10.5 mg/dL) 8.8 Total Bilirubin (0.0 - 1.0 mg/dL) 0.30 Direct Bilirubin (0.0 - 0.30 MG/DL) < 0.10 Indirect Bilirubin (MG/DL) 0.20 AST (15 - 37 IUnit/L) 19 ALT (30 - 65 IUnit/L) 11 L Total Alk Phosphatase (20 - 125 IUnit/L) 52 Total Protein (6.4 - 8.2 g/dL) 6.6 Albumin (3.4 - 5.0 g/dL) 3.60 Lipase (13 - 57 U/L) 35 Hematology WBC (4.5 - 11.0 x10 3/uL) 6.3 RBC (3.54 - 5.02 x10 6/uL) 3.77 Hgb (11.0 - 15.0 g/dL) 11.0 Hct (33.0 - 45.0 %) 33.7 MCV (81.0 - 99.0 fL) 89.4 MCH (27.0 - 33.0 pg) 29.2 MCHC (33.0 - 37.0 g/dL) 32.6 L RDW (11.5 - 14.5 %) 13.7 Plt Count (150 - 400 x10 3/uL) 186 MPV (7.0 - 9.0 fL) 12.4 H Neut % (Auto) (56.0 - 77.0 %) 61.3 Lymph % (Auto) (14.0 - 32.0 %) 29.6 Canyon % (Auto) (4.8 - 9.0 %) 7.3 Eos % (Auto) (0.3 - 3.7 %) 1.3 Baso % (Auto) (0.0 - 2.0 %) 0.3 Neut # (Auto) (2.0 - 7.6 x10 3/uL) 3.87 Lymph # (Auto) (1.0 - 3.8 x10 3/uL) 1.87 Canyon # (Auto) (0.1 - 0.8 x10 3/uL) 0.46 Eos # (Auto) (0.0 - 0.2 x10 3/uL) 0.08 Baso # (Auto) (0.0 - 0.2 x10 3/uL) 0.02 Abs Immat Gran (auto) (0.00 - 0.03 x10 3/uL) 0.01 Add Manual Diff NO Immature Gran % (0.0 - 2.0 %) 0.2 Nucleated RBC % (0 - 0 %) 0.0 Nucleated RBCs # (Man) (0.0 - 0.1 x10 3/uL) 0.00 Miscellaneous Maternal Serum HCG 089457.2 Urines Urine Color (YEL/STRAW) YELLOW Urine Appearance (CLEAR) SL CLOUDY Urine pH (5.0 - 7.0) 6.0 Ur Specific [place] (1.005 - 1.030) 1.015 Urine Protein (NEGATIVE) NEGATIVE Urine Glucose (UA) (NEGATIVE) NEGATIVE Urine Ketones (NEGATIVE) NEGATIVE Urine Blood (NEGATIVE) NEGATIVE Urine Nitrite (NEGATIVE) NEGATIVE Urine Bilirubin (NEGATIVE) NEGATIVE Urine Urobilinogen (0.2 - 1.0 mg/dL) 0.2 Ur Leukocyte Esterase (NEGATIVE) 2+ H Urine RBC (0 - 3 RBC/HPF) 0-3 Urine WBC (0 - 3 WBC/HPF) 10-20 H Ur Squamous Epith Cells (NONE SEEN /HPF) 0-5 Amorphous Sediment (NONE /HPF) TRACE Urine Bacteria (NONE SEEN /HPF) 1+ H Urine Mucus (NONE SEEN /LPF) TRACE Recent Impressions: ULTRASOUND - DUP AB/PEL/SC/LTD 07/13 1617 Report Impression - Status: SIGNED Entered: 07/13/2021 163 IMPRESSION: 1. Single living intrauterine with an estimated ultrasound gestational age of 14 weeks 2 days. 2. Nonvisualization of the right ovary. SL: 131 Impression By: Oj Underwood M.D. ULTRASOUND - US RETROPERITONEAL COM 07/13 1617 Report Impression - Status: SIGNED Entered: 07/13/2021 1639 IMPRESSION: 1. No acute sonographic abnormalities of the kidneys are detected. SL: 131 Impression By: Oj Underwood M.D. ULTRASOUND - US PREG 1ST TRIMTR 07/13 1617 Report Impression - Status: SIGNED Entered: 07/13/2021 1637 IMPRESSION: 1. Single living intrauterine with an estimated ultrasound gestational age of 14 weeks 2 days. 2. Nonvisualization of the right ovary. SL: 131 Impression By: Oj Underwood M.D. Patient Discharge Departure Vital Signs/Condition Vital Signs First Documented: Result Date Time Pulse Ox 99 07/13 1432 B/P 128/83 / 1432 B/P Mean 98 / 1432 O2 Delivery Room air 07/13 143 Temp 37.0 / 1432 Pulse 96 04/ 1432 Resp 16 / 1432 Last Documented: Result Date Time Pulse Ox 100 / 1823 B/P 119/78 / 1823 B/P Mean 91 / 182 O2 Delivery Room air 07/13 182 Pulse 67 04/ 1823 Resp 14 07/13 1823 Temp 37.0 / 1432 All vital signs available at the time of this entry have been reviewed. [address] 07/13/21 1759: HPI-Abd Pain F Under 40 Presentation Chief Complaint Flank pain R Free Text HPI Notes Free Text HPI Notes 36-year-old female with past medical history as below presents to the emergency room with complaint of right flank pain and UTI-like symptoms for the past 5 days. States that she was seen at an urgent care as well as an outside emergency room over the weekend with urinalysis completed and no report of UTI. She reports passing large kidney stone today but still having some right flank pain some lower abdominal cramping as well as vaginal pain with no abnormal vaginal discharge or vaginal bleeding. Risk-Abd Pain F Under 40 )( Ectopic Risk factors reviewed Review of Systems ROS Statements All systems rev neg except as marked. Past Medical History - Adult Review of Nursing Notes Triage notes reviewed Physical Exam Vital Signs Review of Vital Signs Reviewed Focused PE General/Const General/Const Awake, Alert, Well appearing MS Head Head Normocephalic Eyes Eyes PERRL Ears/Nose/Throat Ears/Nose/Throat Airway patent, Mucous membranes moist, Pharynx NL Resp/Chest Respiratory/Chest Breath sounds NL, Breath sounds = bilat, No respiratory distress, No rales, No rhonchi, No wheezing Cardiovascular Cardiovascular Heart rate NL, Regular rhythm, Heart sounds NL, Peripheral circulation NL Abdomen/GI Abdomen/GI Soft, Non-tender, McBurney's non-tender, No guarding, No rebound, BS normoactive, No distention, No hernia, No palpable mass MS Back Back Inspection NL, Non-tender, No CVA tenderness Skin Skin Color NL, Warm, Dry, Turgor NL Neurologic Neurologic Oriented X3, Speech NL, No motor deficits, No sensory deficits Re-Evaluation [facility] )( Re-Evaluation/Progress #1 Text/Dict Note Patient re-eval, she is more comfortable than upon initial exam. 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 Patient expressed understanding and agreement with the plan. Time of Re-Eval 180 )( Re-Eval Status Improved ED Course Medication(s) Ordered Medication(s) Ordered: Central Nervous System Agents Sig/Angelique Start time Last Medication Dose Route Stop Time Status Admin Acetaminophen 1,000 MG X1ED STA 07/13 1427 DC 07/13 PO 07/13 1428 1456 Electrolytic, Caloric, And Ni Sig/Angelique Start time Last Medication Dose Route Stop Time Status Admin Sodium Chloride 0 ASDIR PRN 07/13 1430 AC IV 07/14 1327 Sodium Chloride 1,000 ML X1ED STA 07/13 1427 DC 07/13 IV 07/13 1526 1457 Patient Discharge Departure Clinical Impression Clinical Impression Primary Impression: Cystitis Disposition Decision Discharge )( Discharged to Home Yes )( Time 1800 )( Date 07/13/21 Discharge/Care Plan Counseled Regarding Diagnosis, Lab results, Imaging studies, Prescriptions, Need for follow-up, When to return to ED (Auto) Prescriptions Current Visit Scripts NITROFURANTOIN/NITROFURAN MAC (MACROBID) 100 MG PO BID NITROFURANTOIN/NITROFURAN MAC (MACROBID) 100 MG PO BID #14 CAPS Until finished. Take with food. Patient Instructions Urinary Tract Infections in Women Discharge Note I have spoken with the patient and/or caregivers. I have explained the patient's condition, diagnoses and treatment plan based on the information available to me at this time. I have answered the patient's and/or caregiver's questions and addressed any concerns. The patient and/or caregivers have as good an understanding of the patient's diagnosis, condition and treatment plan as can be expected at this point. The vital signs have been stable. The patient's condition is stable and appropriate for discharge from the emergency department. The patient will pursue further outpatient evaluation with the primary care physician or other designated or consulting physician as outlined in the discharge instructions. The patient and/or caregivers are agreeable to this plan of care and follow-up instructions have been explained in detail. The patient and/or caregivers have received these instructions in written format and have expressed an understanding of the discharge instructions. The patient and/or caregivers are aware that any significant change in condition or worsening of symptoms should prompt an immediate return to this or the closest emergency department or a call to 911. Darvin Del Castillo 07/17/21 2219: Patient Discharge Departure Discharge/Care Plan Referrals Provider Referral: Kee Davila MD Address: [address] [place] [address], [place] [address] Supervising Physician Note MidLv Saw Pt Alone I have reviewed the PA/FONDANT MACHINE OPERATOR's note and plan of care. I was available for consultation as needed at all times during the patient's visit in the emergency department. I agree with the clinical impression, plan and disposition. at 0015 at 2100 at 0545 RPT #:[id number] END OF REPORT [facility]
--- NOTE | 2024-07-16 21:42 | RAD REPORT ---
EXAMINATION: CT MAXILLOFACIAL WITHOUT CONTRAST CLINICAL INDICATION: Facial injury with facial pain. TECHNIQUE: Axial images were obtained through the facial bones and orbits without intravenous contras t. Sagittal and coronal reconstructions were created from the data. One or more of the following dose reduction techniques were used: Automated exposure control, adjustment of the mA and/or kV accor ding to patient size, and/or iterative reconstruction. Unless otherwise specified, incidental findings do not require dedicated imaging follow-up. COMPARISON: No prior exam. FINDINGS: A fracture is not visualized. Mild swelling within the nasal soft tissue. No TMJ dislocation Fluid within the sinuses not seen. The globes are normal size and density IMPRESSION: Facial fracture not seen
--- NOTE | 2024-07-16 21:44 | RAD REPORT ---
EXAM: CT brain without contrast HISTORY: Headache status post facial injury COMPARISON: None TECHNIQUE: Multiple contiguous axial images were obtained and a CT of the brain without contrast.. Sagittal and coronal reconstruction performed. Automated exposure control, adjustment of the mA and/or kV according to patient size, and/or iterative reconstruction. Unless otherwise specified, incidental f indings do not require dedicated imaging follow-up FINDINGS: An intracranial bleed is not seen Ventricles are normal caliber No extra-axial fluid collection noted No significant hypodensity within the brain No fluid within the visualized sinuses or mastoids noted. IMPRESSION: No acute intracranial abnormality noted. If the patient continues to have symptoms to suggest an acute intracranial abnormality then MRI of th e brain would be recommended.
[2024-07-16 21:50] LABS: Specific Gravity 1.015 (1.005-1.030)
[2024-07-16] MEDS ORDERED: ACETAMINOPHEN 500 MG TAB ONE (21:51)
[2024-07-16] MEDS ORDERED: KETOROLAC 10 MG TAB ONE (21:51)
[2024-07-16] MEDS ORDERED: METOCLOPRAMIDE 5 MG TAB ONE (21:52)
--- NOTE | 2024-07-16 22:19 | ER ---
Nurse's Notes [facility] Name: Winifred Lima Age: 39 yrs Sex: Female : 1985 Arrival Date: 07/16/2024 Time: 19:40 Bed DX3 Private MD: Diagnosis: Acute facial contusion, acute nasal contusion, acute right periorbital hematoma, acute left periorbital hematoma, Presentation: 07/16 20:34 Chief complaint: Patient states: hit in the nose while building a slide on Monday. No me1 LOC. Bruising noted to bridge of nose and bilateral eyes today. SARAVIA 10/17. Coronavirus screen: Vaccine status: Patient reports receiving the 2nd dose of the covid vaccine. Ebola Screen: No symptoms or risks identified at this time. Initial Sepsis Screen: Does the patient meet any 2 criteria? No. Patient's initial sepsis screen is negative. Does the patient have a suspected source of infection? No. Patient's initial sepsis screen is negative. Risk Assessment: Do you want to hurt yourself or someone else? Patient reports no desire to harm self or others. Onset of symptoms was July 14, 2024. 20:34 Method Of Arrival: Ambulatory ok1 20:34 Acuity: VICKY 3 me1 COMPLIANCE MONITOR: 20:36 LMP 07/11/2024, unknown me1 Historical: - Allergies: 20:36 No Known Allergies; me1 - PMHx: 20:36 None; me1 - PSHx: 20:36 section; Tonsillectomy; me1 - Immunization history:: Adult Immunizations up to date. - Infectious Disease History:: Denies. - Social history:: Smoking status: Patient denies any tobacco usage or history of. - Family history:: not pertinent. Screenin:29 [facility] ED Fall Risk Assessment (Adult) History of falling in the last 3 months, ha1 including since admission No falls in past 3 months (0 pts) Confusion or Disorientation No (0 pts) Intoxicated or Sedated No (0 pts) Impaired Gait No (0 pts) Mobility Assist Device Used No (0 pt) Altered Elimination No (0 pt) Score/Fall Risk Level 0 - 2 = Low Risk Oriented to surroundings, Maintained a safe environment, Educated pt \T\ family on fall prevention, incl call for assistance when getting out of bed, Hourly rounding (assess needs \T\ fall precautionary measures) done. Abuse screen: Denies threats or abuse. Denies injuries from another. Nutritional screening: No deficits noted. Tuberculosis screening: No symptoms or risk factors identified. Assessment: 21:54 General: Appears uncomfortable, well groomed, well developed, well nourished, Behavior me1 is calm, cooperative, appropriate for age, Reports. Pain: Complains of pain in head Pain does not radiate. Pain currently is 7 out of 10 on a pain scale. Quality of pain is described as aching, Pain began suddenly, 2-3 days ago. Is continuous. Neuro: Level of Consciousness is awake, alert, obeys commands, Oriented to person, place, time, situation, Appropriate for age Reports headache frontal area. Cardiovascular: Patient's skin is warm and dry. Respiratory: Airway is patent Respiratory effort is even, unlabored, Respiratory pattern is regular, symmetrical. GI: No signs and/or symptoms were reported involving the gastrointestinal system. : No signs and/or symptoms were reported regarding the genitourinary system. EENT: Reports pain in right eye, nose and left eye. Derm: Bruising that is dark purple, on right eye, nose and left eye. Musculoskeletal: No signs and/or symptoms reported regarding the musculoskeletal system. Injury Description: hit across the bridge of the nose with a slide she was putting together on Monday. 22:28 Reassessment: Patient and/or family updated on plan of care and expected duration. Pain ha1 level reassessed. Patient is alert, oriented x 3, equal unlabored respirations, skin warm/dry/pink. PAIN 3/10 Patient states feeling better. Patient states symptoms have improved. Vital Signs: 20:34 BP 121 / 92; Pulse 69; Resp 16; Temp 98; Pulse Ox 100% ; Weight 57.61 kg; Height 5 ft. me1 4 in. ; Pain 7/10; 22:28 BP 121 / 69; Pulse 71; Resp 19 S; Pulse Ox 98% on R/A; ha1 20:34 Body Mass Index 21.80 (57.61 kg, 162.56 cm) me1 20:34 Pain Scale: Adult me1 Frank Coma Score: 07/17 05:12 Eye Response: spontaneous(4). Motor Response: obeys commands(6). Verbal Response: sp4 oriented(5). Total: 15. 05:15 Eye Response: spontaneous(4). Motor Response: obeys commands(6). Verbal Response: sp4 oriented(5). Total: 15. ED Course: 07/16 19:53 Patient arrived in ED. gm2 20:08 Paresh Brown MD is Attending Physician. sp4 20:36 Triage completed. me1 20:36 Arm band placed on Patient placed in waiting room. me1 20:36 Patient has correct armband on for positive identification. Bed in low position. Call ha1 light in reach. Side rails up X 1. 20:36 Provided Education on: PLAN OF CARE . ha1 21:20 Urine collected: clean catch specimen, clear. kl 21:25 CT Facial Bones W/O Con In Process Unspecified. EDMS 21:25 CT Head Brain wo Cont In Process Unspecified. EDMS 22:29 No provider procedures requiring assistance completed. Patient did not have IV access ha1 during this emergency room visit. Administered Medications: 21:53 Drug: Ketorolac PO 10 mg PO once Route: PO; me1 22:31 Follow up: Response: No adverse reaction; Marked relief of symptoms; Pain is decreased ha1 21:53 Drug: Acetaminophen PO 1000 mg PO once Route: PO; me1 22:30 Follow up: Response: No adverse reaction; Marked relief of symptoms ha1 21:53 Drug: MetoCLOPramide PO 10 mg PO once Route: PO; me1 22:30 Follow up: Response: No adverse reaction; Marked relief of symptoms; Pain is decreased ha1 Medication: 22:30 VIS not applicable for this client. ha1 Outcome: 22:19 Discharge ordered by . sp4 22:29 Discharged to home ambulatory, ha1 22:29 Condition: stable 22:29 Discharge instructions given to patient, Instructed on discharge instructions, follow up and referral plans. medication usage, Demonstrated understanding of instructions, follow-up care, medications, Prescriptions given X 1, 22:31 Patient left the ED. ha1 Signatures: Dispatcher [employer] EDMS Magnolia Wills RN RN kl Ayala, Heidy, RN RN Paresh Rios MD MD sp4 Eddleman, Michelle, RN RN [facility] Karen Acosta 2
--- NOTE | 2024-07-16 22:19 | EDPHYS ---
Physician Documentation [facility] Name: Winifred Lima Age: 39 yrs Sex: Female : 1985 Arrival Date: 07/16/2024 Time: 19:40 Bed DX3 Private MD: ED Physician Paresh Brown HPI: 07/16 20:08 This 39 yrs old Female presents to ER via Unassigned with complaints of sp4 Facial Injury. 07/17 05:12 39-year-old female presents with acute facial injury 2 days ago via accidental impacted sp4 by a metal ladder to her nasal bridge. Patient since then developed bilateral infraorbital discoloration aspen to a raccoon eyes. Worsening nasal pain and swelling. Denied epistaxis.. 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 - Infectious Disease History:: Denies. - Social history:: Smoking status: Patient denies any tobacco usage or history of. - Family history:: not pertinent. ROS: 07/17 05:12 Constitutional: Negative for fever, chills, and weight loss, ENT: Positive nasal pain, sp4 positive bilateral facial hematoma, positive bilateral periorbital discoloration. All other systems are negative, Exam: 05:12 Constitutional: This is a well developed, well nourished patient who is awake, alert, sp4 and in no acute distress. Head/Face: Normocephalic, there is acute appearing nasal swelling with bilateral infraorbital discoloration positive for raccoon eyes. No sign of nasal deformity. No epistaxis. Eyes: Pupils equal round and reactive to light, extra-ocular motions intact. Lids and lashes normal. Conjunctiva and sclera are not injected. Cornea within normal limits. There are bilateral infraorbital hematomas. ENT: Nares patent. No nasal discharge, no septal abnormalities noted. Tympanic membranes are normal and external auditory canals are clear. Oropharynx with no redness, swelling, or masses, exudates, or evidence of obstruction, uvula midline. Mucous membranes moist. Neck: Trachea midline, no thyromegaly or masses palpated, and no cervical lymphadenopathy. Supple, full range of motion without nuchal rigidity, or vertebral point tenderness. Chest/axilla: Normal chest wall appearance and motion. Nontender with no deformity. No lesions are appreciated. Cardiovascular: Regular rate and rhythm with a normal S1 and S2. No gallops, murmurs, or rubs. Normal PMI, no JVD. No pulse deficits. Respiratory: Lungs have equal breath sounds bilaterally, clear to auscultation and percussion. No rales, rhonchi or wheezes noted. No increased work of breathing, no retractions or nasal flaring. Abdomen/GI: Soft, with normal bowel sounds. No distension or tympany. No guarding or rebound. No evidence of tenderness throughout. Back: No spinal tenderness. No costovertebral tenderness. Skin: Warm, dry with normal turgor. Normal color with no rashes, no lesions, and no evidence of cellulitis. MS/ Extremity: Pulses equal, no cyanosis. Neurovascular intact. Full, normal range of motion. Neuro: Awake and alert, GCS 15, oriented to person, place, time, and situation. Cranial nerves II-XII grossly intact. Motor strength 5/5 in all extremities. Sensory grossly intact. Psych: Awake, alert, with orientation to person, place and time. Behavior, mood, and affect are within normal limits Vital Signs: 07/16 20:34 BP 121 / 92; Pulse 69; Resp 16; Temp 98; Pulse Ox 100% ; Weight 57.61 kg; Height 5 ft. me1 4 in. ; Pain 7/10; 22:28 BP 121 / 69; Pulse 71; Resp 19 S; Pulse Ox 98% on R/A; ha1 20:34 Body Mass Index 21.80 (57.61 kg, 162.56 cm) me1 20:34 Pain Scale: Adult me1 Rayne Coma Score: 07/17 05:12 Eye Response: spontaneous(4). Motor Response: obeys commands(6). Verbal Response: sp4 oriented(5). Total: 15. 05:15 Eye Response: spontaneous(4). Motor Response: obeys commands(6). Verbal Response: sp4 oriented(5). Total: 15. MDM: 07/16 20:12 Medical Screening Exam initiated sp4 22:17 ED course: EXAM: CT brain without contrast HISTORY: Headache status post facial injury sp4 COMPARISON: None TECHNIQUE: Multiple contiguous axial images were obtained and a CT of the brain without contrast.. Sagittal and coronal reconstruction performed. Automated exposure control, adjustment of the mA and/or kV according to patient size, and/or iterative reconstruction. Unless otherwise specified, incidental findings do not require dedicated imaging follow-up FINDINGS: An intracranial bleed is not seen Ventricles are normal caliber No extra-axial fluid collection noted No significant hypodensity within the brain No fluid within the visualized sinuses or mastoids noted. IMPRESSION: No acute intracranial abnormality noted. If the patient continues to have symptoms to suggest an acute intracranial abnormality then MRI of the brain would be recommended.. ED course: EXAMINATION: CT MAXILLOFACIAL WITHOUT CONTRAST CLINICAL INDICATION: Facial injury with facial pain. TECHNIQUE: Axial images were obtained through the facial bones and orbits without intravenous contrast. Sagittal and coronal reconstructions were created from the data. One or more of the following dose reduction techniques were used: Automated exposure control, adjustment of the mA and/or kV according to patient size, and/or iterative reconstruction. Unless otherwise specified, incidental findings do not require dedicated imaging follow-up. COMPARISON: No prior exam. FINDINGS: A fracture is not visualized. Mild swelling within the nasal soft tissue. No TMJ dislocation Fluid within the sinuses not seen. The globes are normal size and density IMPRESSION: Facial fracture not seen . 07/17 05:15 Differential diagnosis: Contusion of Hematoma on Intracranial bleed- Concussion sp4 cerebral contusion. Data reviewed: vital signs, nurses notes, lab test result(s), UPT: negative radiologic studies, CT scan. Consideration of Admission/Observation Escalation of care including admission/observation considered. ED course: No signs of facial fractures on the CT. Patient stable for discharge home with as needed ketorolac for pain.. 07/16 20:34 Order name: Test, Urine; Complete Time: 22:13 sp4 07/16 20:34 Order name: CT Facial Bones W/O Con; Complete Time: 22:13 sp4 07/16 20:34 Order name: CT Head Brain wo Cont; Complete Time: 22:13 sp4 Administered Medications: 07/16 21:53 Drug: Ketorolac PO 10 mg PO once Route: PO; me1 22:31 Follow up: Response: No adverse reaction; Marked relief of symptoms; Pain is decreased ha1 21:53 Drug: Acetaminophen PO 1000 mg PO once Route: PO; me1 22:30 Follow up: Response: No adverse reaction; Marked relief of symptoms ha1 21:53 Drug: MetoCLOPramide PO 10 mg PO once Route: PO; me1 22:30 Follow up: Response: No adverse reaction; Marked relief of symptoms; Pain is decreased ha1 Disposition Summary: 07/16/24 22:19 Discharge Ordered Notes: Location: Home sp4 Problem: new sp4 Symptoms: have improved sp4 Condition: Stable sp4 Diagnosis - Acute facial contusion, acute nasal contusion, acute right periorbital hematoma, sp4 acute left periorbital hematoma, Followup: sp4 - With: Private Physician - When: As needed - Reason: Discharge Instructions: - Discharge Summary Sheet sp4 - Facial or Scalp Contusion, [id number] sp4 Forms: - Patient Portal Instructions sp4 Prescriptions: - ketorolac 10 mg Oral tablet - take 1 tablet ORAL route 3 times per day for 5 days as needed for pain; 30 sp4 tablet; Refills: 0, Product Selection Permitted Signatures: 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 EDMS EDMS
[2024-07-16 23:29] VITALS: TEMP 98
[2024-07-16 23:30] VITALS: BP 121/69; O2SAT 98
== END 2024-07-16 22:31 | disposition home or self-care (01) ==
LOC: ER 19:40
DX: S00.33XA Contusion of nose, initial encounter (principal); S00.12XA Contusion of left eyelid and periocular area, initial encounter; S00.11XA Contusion of right eyelid and periocular area, initial encounter
CPT/HCPCS: 70450; 70486; 76377; 81025; 99283